=== PATIENT | female | born 1935 | race Caucasian/White ===

== ENCOUNTER 2019-08-07 02:04 | Inpatient (IN) | payer MEDICARE, SELFPAY | END 2019-08-08 16:00 | disposition home or self-care (01) | DRG 389 | LOC: MEDSURG 08-08 09:28 | PROVIDERS: Admitting Provider Internal Medicine; Emergency Provider Emergency Medicine; PCP Nurse Practitioner; Referring Provider Internal Medicine; Visit Provider Internal Medicine | DX: K56.609 Unspecified intestinal obstruction, unspecified as to partial versus complete obstruction (principal); N39.0 Urinary tract infection, site not specified; I10 Essential (primary) hypertension; E11.9 Type 2 diabetes mellitus without complications; Z79.82 Long term (current) use of aspirin; Z79.84 Long term (current) use of oral hypoglycemic drugs; Z86.73 Personal history of transient ischemic attack (TIA), and cerebral infarction without residual deficits; Z87.891 Personal history of nicotine dependence ==

== ENCOUNTER 2020-05-31 13:24 | Outpatient (CLI) | payer MEDICARE, SELFPAY ==
--- NOTE | 2020-05-31 13:34 | XR_ITS ---
NOTE: Report was unsigned for reason: Order was edited. Original Signature date and time was: 05/31/20 @ 1418 WS: [id number] AP pelvis, AP and frog-leg views both hips, 05/31/2020 Clinical Data: LOW BACK PAIN FALL Comparison: None. Findings: The SI joints are normal. The pubic symphysis shows small erosions and calcifications from an old injury. No pelvic fractures are seen. No hip fractures are seen. There are linear calcifications extending inferiorly from the inferior ischiopubic rami bilaterally which appear to be calcifications within muscles, possibly from old injuries. The right hip shows degenerative change with narrowing and possible calcifications in the synovium lateral to the right femoral head. The left hip also shows narrowing with possible synovial calcifications lateral to the left femoral head [facility] XR/XR hip BI 2V wo/w pel [id number] Impression: 1. Negative for pelvic or hip fractures. 2. Degenerative change of both hips. 3. Calcifications within thigh muscles probably from old injuries bilaterally.
--- NOTE | 2020-05-31 13:34 | XR_ITS ---
WS: [id number] Lumbar spine, 3 views, 05/31/2020 Clinical Data: LOW BACK PAIN FALL Comparison: CT abdomen and pelvis, 08/07/2019 Findings: There is a compression fracture of the L5 vertebral body with loss of 25% of the anterior and central vertebral body height. There is an anterior subluxation of L4 on L5 of 0.74 cm. All the lumbar verte bral bodies show osteoporosis and moderate osteoarthritic spurring. The disc heights are normal. The transverse processes and SI joints are normal. There is calcification in the wall of the abdomina l aorta but no aneurysm is seen. There are clips in the right upper quadrant from a cholecystectomy. XR/XR lumbar spine 2-3V* [id number] Impression: 1. Compression fracture of the anterior and central portion of the L5 vertebral body of approximately 25-50%. 2. Anterolisthesis of L4 and L5 of 0.74 cm. 3. Osteoporosis and osteoarthritis involving all the lumbar vertebral bodies.
== END 2020-05-31 13:25 | disposition home or self-care (01) ==
LOC: RADWPI 13:31
PROVIDERS: Family Provider Nurse Practitioner Family; PCP Nurse Practitioner Family; Visit Provider Nurse Practitioner Family
DX: Z91.81 History of falling (principal); M54.5 Low back pain; S32.050A Wedge compression fracture of fifth lumbar vertebra, initial encounter for closed fracture; M81.0 Age-related osteoporosis without current pathological fracture; X58.XXXA Exposure to other specified factors, initial encounter
CPT/HCPCS: 72100; 73521; 73523

== ENCOUNTER 2020-07-08 17:46 | Inpatient (IN) | payer MEDICARE, SELFPAY ==
[2020-07-08 17:47] VITALS: BP 166/91; PULSE 65; RESP 17; TEMP 36.7; O2SAT 95; BMI 25.4
--- NOTE | 2020-07-08 17:50 | XRR_ITS ---
PROCEDURE INFORMATION: Exam: XR Chest, 1 View Exam date and time: 07/08/2020 5:52 PM Age: 84 years old Clinical indication: Chest pain; Radiating; Additional info: Chest pain radiates up neck TECHNIQUE: Imaging protocol: XR of the chest Views: 1 view. COMPARISON: CR Chest 1 [place] [id number] 08/07/2019 8:41 AM FINDINGS: Lungs: There is bilateral interstitial fibrosis predominantly in the right upper lobe. This has not changed. No new pulmonary infiltrates are seen. Pleural space: Unremarkable. No pleural effusion. No pneumothorax. Heart/Mediastinum: The heart is normal for the AP projection. The aorta is tortuous and calcified. Bones/joints: Unremarkable. XR/XR chest 1V portable [id number] IMPRESSION: 1. Stable interstitial pulmonary fibrosis. 2. No acute abnormalities are seen in the chest.
--- NOTE | 2020-07-08 17:50 | ECG_ITS ---
[facility] Test Date: 2020-07-08 Pat Name: Kenia Camacho Department: Room: Gender: Female Community Mental Health Worker: : 1935 Requested By: Sunni Baker Order Number: [id number] Tali MD: Kyara Garcia M.D. Measurements Intervals [place] Rate: 59 P: 35 IN: 136 QRS: -44 QRSD: 121 T: -20 QT: 453 QTc: 451 Interpretive Statements SINUS BRADYCARDIA WITH FREQUENT VENTRICULAR PREMATURE COMPLEXES LEFT AXIS DEVIATION [QRS AXIS < -30] RIGHT BUNDLE BRANCH BLOCK [120+ ms QRS DURATION, UPRIGHT V1, 40+ ms S IN I/aVL/V4/V5/V6] MODERATE T-WAVE ABNORMALITY, CONSIDER LATERAL ISCHEMIA [-0.1+ mV T WAVE IN I/aVL/V5/V6] No previous ECG available for comparison Electronically Signed On 07-09-2020 22:17:19 ASSISTANT PROFESSOR OF ANTHROPOLOGY by Kyara Garcia M.D. [email or web address]/[id number] f
[2020-07-08 18:17] LABS: Basophils % 0.3 %; Eosinophils # 0.3 10^3/uL (0.0-0.8); Eosinophils % 2.6 %; Hematocrit 37.4 % (37.0-47.0); Hemoglobin 11.8 g/dL (11.5-15.3); Lymphocytes # 4.1 10^3/uL (0.8-4.8); Lymphocytes % 33.9 %; Mean Corpuscular HGB Conc 31.6 g/dL (30.0-36.0); Mean Corpuscular Hemoglobin 29.5 pg (28.0-34.0); Mean Corpuscular Volume 93.5 fL (81-99); Mean Platelet Volume 11.3 fL (7.4-10.4); Monocytes # 0.9 10^3/uL (0.2-0.9); Monocytes % 7.6 %; Neutrophils # 6.66 10^3/uL (1.8-7.7); Neutrophils % 55.4 %; Nucleated Red Blood Cells % 0 %; Platelet Count 346 10^3/cmm (130-400); Red Cell Distribution Width 15.3 % (12.1-15.1); White Blood Count 12.1 10^3/uL (4.0-10.0)
[2020-07-08 18:25] LABS: INR 0.88 (0.8-1.2)
[2020-07-08 18:35] LABS: Troponin(5th) Baseline 9 ng/L (0-10)
[2020-07-08 18:43] LABS: Alanine Aminotransferase 10 U/L (0-33); Albumin Level 4.5 g/dL (3.5-5.2); Alkaline Phosphatase 130 IU/L (35-105); Anion Gap 15.6 (5-19); Aspartate Amino Transferase 14 U/L (0-32); Blood Urea Nitrogen 20 mg/dL (8-23); Calcium 9.9 mg/dL (8.5-10.5); Carbon Dioxide 28 mmol/L (22-29); Chloride 98 mmol/L (98-107); Creatinine Clr Calc Pharmacy 37.3798; Globulin 2.8 g/dL (1.3-4.6); Glucose 134 mg/dL (65-115); Lipase 34 U/L (13-60); NT Pro B Type Natriuretic Pept 1840 pg/mL (0-450); Osmolality Calculated 291 mOsm/kg (285-295); Potassium 3.6 mmol/L (3.5-5.1); Sodium 138 mmol/L (136-145); Total Bilirubin 0.3 mg/dL (0.15-1.2); Total Protein 7.3 g/dL (6.6-8.7)
--- NOTE | 2020-07-08 18:44 | W.ED.CHESTPA ---
HPI - Chest Pain General: Chief Complaint: Chest Pain Stated Complaint: CHEST PAIN, NAUSEA Time Seen by Provider: 07/08/20 17:50 History of Present Illness: HPI narrative: This patient is an 84-year-old female who comes in today with chest pain. She said it started about 330 this afternoon while she was sitting and reading. She describes it as a tightness that got continually worse. She has never had anything like this before. She thinks she might of had a stress test years ago but does not recall the reason that she had it. She is never had any other cardiac issues or testing. She does have a history of hypertension and diabetes. She has reflux and takes something for that but said this totally felt different. She was brought in by ambulance and was given 2 nitroglycerin tablets which improved her pain from a 9 to a 4. She also had Nitropaste placed. She denies any recent illness, fever, cough. No vomiting or diarrhea. She has had nausea since this pain started. MD complaint: chest pain and chest heaviness Pertinent past history: other (Hypertension, diabetes) Onset (ago): hour(s) (2) Timing of current episode: constant Prior episodes: No Onset: during rest Pain location: substernal Pain radiation: neck Severity: severe Quality: tightness, aching and heaviness Relieving factors: nitroglycerin Exacerbating factors: nothing Associated symptoms: Reports dyspnea and nausea; Deny fever(s) Treatment prior to arrival: aspirin and nitroglycerin Review of Systems General: Reports: 10 or more systems reviewed and unremarkable except in HPI and below Const: Denies: fever(s), chills, fatigue or malaise Eyes: Denies: change in vision ENMT: Denies: odynophagia Card: Reports: chest pain; Denies: swelling of feet/ankles Resp: Reports: dyspnea GI: Reports: nausea : Denies: flank pain or difficulty voiding Musc: Denies: neck pain or back pain Skin/Breast: Denies: rash Neuro: Denies: headache(s), numbness in extremities or weakness in extremities Anant/Lymph: Denies: easy bruising or easy bleeding PFS ED PFSH: Medical History History of small bowel obstruction Social History Smoking and tobacco status: former smoker Quit status (tobacco): has quit using tobacco Year quit tobacco: 1984 Second hand smoke exposure: No Alcohol intake: never Adopted: No Caregiver/support person: Yes Lives independently: Yes Household members: spouse and family Housing: House Marital status: Marital status details: month Highest education level completed: High School Graduate service: No Current occupational status: retired Pets and animals: No History of recent travel: No Leisure activites: music and games Sexually active: No Current gender identity: Female Karley/Mormon: Zoroastrian Special karley needs: No Agree to transfusion: No Financial difficulty paying for basics: Decline to Answer Physical Exam Const: COMMON NORMALS: no acute distress, patient oriented x3, no limitations and alert GENERAL APPEARANCE: cooperative and comfortable HENMT: HEAD & SCALP: normal to inspection FACE & SINUS: normal facial exam Eye: GENERAL EYE: appearance normal, both eyes and all related structures Neck/C-Spine: COMMON NORMALS: supple, no meningeal signs and no JVD Chest: COMMONS NORMALS: normal inspection of the chest Resp: COMMON NORMALS: normal respiratory effort, No use of accessory muscles and clear to auscultation bilaterally AUSCULTATION: clear to auscultation bilaterally Cardio: COMMON NORMALS: no JVD, regular rate, regular rhythm and No murmurs present (Cardio) RATE: regular rate RHYTHM: regular rhythm GI: COMMON NORMALS: Normal to inspection, nondistended, normoactive bowel sounds present, Soft to palpation and non-tender INSPECTION: Yes normal to inspection AUSCULTATION: Yes normoactive bowel sounds PALPATION: Yes Soft to palpation Back/Pelvis: COMMON NORMALS: thoracic and lumbar spine normal to inspection Extremity: COMMON NORMALS: normal to inspection Neuro: COMMON NORMALS: patient oriented x3, moves all extremities, no focal motor deficits and no sensory deficits noted SENSORIUM/ORIENTATION: Yes alert MENINGEAL SIGNS: Yes no meningeal signs Psych: COMMON NORMALS: mental status grossly normal, cooperative and normal affect Skin: COMMON NORMALS: no rashes or lesions noted and turgor normal GENERAL SKIN EXAM: no rashes or lesions noted and turgor normal Course ED course: Patient continued to have some mild chest discomfort while in the ED. Morphine helped with that. Her initial troponin was 9 but her second had a positive delta of 63. Her EKG remained abnormal but her second had less depression in the precordial leads. She was given Lovenox and will be admitted to the hospitalist service for further evaluation of her and STEMI.. I was not able to find a prior EKG for comparison. Vital Signs: Vital signs: Vital Signs Temperature 98.0 F 07/08/20 17:47 Pulse Rate 66 07/08/20 22:22 Respiratory Rate 16 07/08/20 22:22 Blood Pressure 122/69 07/08/20 22:22 Pulse Oximetry 93 07/08/20 22:22 MDM - Chest Pain Lab Data: Labs: Lab Results 07/08/20 07/08/20 07/08/20 Range/Units 18:00 18:00 18:00 WBC 12.1 H (4.0-10.0) 10^3/ uL RBC 4.00 L (4.1-5.3) 10^6/u L Hgb 11.8 (11.5-15.3) g/dL Hct 37.4 (37.0-47.0) % MCV 93.5 (81-99) fL MCH 29.5 (28.0-34.0) pg MCHC 31.6 (30.0-36.0) g/dL RDW 15.3 H (12.1-15.1) % Plt Count 346 (130-400) 10^3/c mm MPV 11.3 H (7.4-10.4) fL Neut % (Auto) 55.4 % Lymph % (Auto) 33.9 % [place] % (Auto) 7.6 % Eos % (Auto) 2.6 % Baso % (Auto) 0.3 % Neut # (Auto) 6.66 (1.8-7.7) 10^3/u L Lymph # (Auto) 4.1 (0.8-4.8) 10^3/u L [place] # (Auto) 0.9 (0.2-0.9) 10^3/u L Eos # (Auto) 0.3 (0.0-0.8) 10^3/u L Baso # (Auto) 0.0 (0.0-0.1) 10^3/u L Nucleated RBC % (a uto) 0 % Nucleated RBCs # 0.0 /100WBC PT 12.20 (12.1-14.9) SECO NDS INR 0.88 (0.8-1.2) Sodium 138 (136-145) mmol/L Potassium 3.6 (3.5-5.1) mmol/L Chloride 98 (98-107) mmol/L Carbon Dioxide 28 (22-29) mmol/L Anion Gap 15.6 (5-19) BUN 20 (8-23) mg/dL Creatinine 0.9 (0.5-0.9) mg/dL GFR Calculation Not Reportable Glucose 134 H (65-115) mg/dL Calculated Osmolal ity 291 (285-295) mOsm/k g Calcium 9.9 (8.5-10.5) mg/dL Total Bilirubin 0.3 (0.15-1.2) mg/dL AST 14 (0-32) U/L ALT 10 (0-33) U/L Alkaline Phosphata se 130 H (35-105) IU/L Troponin T Baselin e (0-10) ng/L Troponin T 120 Min [place] (0-10) ng/L Delta Troponin T (0-10) ABS# NT-Pro-B Natriuret Pep 1840 H (0-450) pg/mL Total Protein 7.3 (6.6-8.7) g/dL Albumin 4.5 (3.5-5.2) g/dL Globulin 2.8 (1.3-4.6) g/dL Lipase 34 (13-60) U/L 07/08/20 07/08/20 Range/Units 18:00 19:35 WBC (4.0-10.0) 10^3/ uL RBC (4.1-5.3) 10^6/u L Hgb (11.5-15.3) g/dL Hct (37.0-47.0) % MCV (81-99) fL MCH (28.0-34.0) pg MCHC (30.0-36.0) g/dL RDW (12.1-15.1) % Plt Count (130-400) 10^3/c mm MPV (7.4-10.4) fL Neut % (Auto) % Lymph % (Auto) % [place] % (Auto) % Eos % (Auto) % Baso % (Auto) % Neut # (Auto) (1.8-7.7) 10^3/u L Lymph # (Auto) (0.8-4.8) 10^3/u L [place] # (Auto) (0.2-0.9) 10^3/u L Eos # (Auto) (0.0-0.8) 10^3/u L Baso # (Auto) (0.0-0.1) 10^3/u L Nucleated RBC % (a uto) % Nucleated RBCs # /100WBC PT (12.1-14.9) SECO NDS INR (0.8-1.2) Sodium (136-145) mmol/L Potassium (3.5-5.1) mmol/L Chloride (98-107) mmol/L Carbon Dioxide (22-29) mmol/L Anion Gap (5-19) BUN (8-23) mg/dL Creatinine (0.5-0.9) mg/dL GFR Calculation Glucose (65-115) mg/dL Calculated Osmolal ity (285-295) mOsm/k g Calcium (8.5-10.5) mg/dL Total Bilirubin (0.15-1.2) mg/dL AST (0-32) U/L ALT (0-33) U/L Alkaline Phosphata se (35-105) IU/L Troponin T Baselin e 9 (0-10) ng/L Troponin T 120 Min [place] 74.30 H (0-10) ng/L Delta Troponin T 65.30 H* (0-10) ABS# NT-Pro-B Natriuret Pep (0-450) pg/mL Total Protein (6.6-8.7) g/dL Albumin (3.5-5.2) g/dL Globulin (1.3-4.6) g/dL Lipase (13-60) U/L Discharge Plan Discharge Patient Disposition: Admitted As Inpatient Admit Provider: Cameron Barrientos Coding Level of Care Code 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
[2020-07-08 19:14] VITALS: RESP 18; O2SAT 97
[2020-07-08] MEDS: morphine 4 mg/mL SDV 1 mL IVP (19:14)
[2020-07-08 19:49] VITALS: BP 160/83; PULSE 74; RESP 15; O2SAT 95
[2020-07-08] MEDS: enoxaparin 80 mg/0.8 mL Syringe 60 MG SUBCUT (21:27)
--- NOTE | 2020-07-08 21:40 | PC.NURSE ---
pt report called to Brionna MAR in SBAR format.
[2020-07-08 22:19] VITALS: BP 155/84; PULSE 70; RESP 16; TEMP 36.3; O2SAT 94
[2020-07-08 22:22] VITALS: BP 122/69; PULSE 66; RESP 16; O2SAT 93
--- NOTE | 2020-07-08 22:41 | P.HP_ITS ---
Providers/Chief Complaint Admitting Physician: Cameron Barrientos MD Primary Care Provider: SOUMYA Elliott Chief Complaint: CHEST PAIN, NAUSEA History of Present Illness Kenia Camacho is a 84 year old female with past medical history of, hypertension, diabetes, gout, GERD. Came in with chief complaint of substernal chest pain started around 3:30 in the afternoon on the day of admission, described the pain as pressure-like, 8 out of 10 in severity, radiating to the left arm, as well as to neck, she has never experienced any chest pain like this before, was accompanied with nausea,diaphoresis, dizziness. She eventually ended up calling EMS, received 2 sublingual nitro, with some relief. On review of system, denies any headache, fever, cough, shortness of breath, vomiting, abdominal pain, constipation, urinary complaints, weakness in any body part, sick contact. Upon arrival in the ER she was worked up for chest pain. EKG:SINUS RHYTHM WITH OCCASIONAL VENTRICULAR PREMATURE COMPLEXES RIGHT BUNDLE BRANCH BLOCK. X-ray chest: No acute infiltrates, no pulmonary congestion. Troponin: Baseline: 9, 2-hour: 74, delta: 65, 6 hours: 293, delta 6-hour: 284 Pro : BNP: 1840 WBC:[id number] ER medications: Aspirin: 325 mg oral x1 dose, Plavix 300 MG oral x1 dose, morphine 4 mg IV x1. Review of Systems Const: Denies: fever(s), chills, body aches or change in appetite Card: Denies: palpitations, edema, swelling of feet/ankles, orthopnea or leg pain with exertion Resp: Denies: productive cough, wheezing or pain on inspiration GI: Denies: abdominal pain, vomiting, diarrhea or constipation : Denies: flank pain Musc: Denies: back pain, extremity pain or extremity swelling Neuro: Denies: headache(s), difficulty walking or confusion Medications/Allergies Home Medications Medication Instructions Recorded Confirmed Last Taken Type aspirin 81 mg tablet,delayed 81 mg PO ONCE 08/17/19 07/08/20 07/06/20 History release cholecalciferol (vitamin D3) 50 50 mcg PO ONCE 08/17/19 07/08/20 07/06/20 History mcg (2,000 unit) capsule cyanocobalamin (vitamin B-12) 5,000 mcg PO DAILY 08/17/19 07/08/2007/06/20 History 5,000 mcg capsule furosemide 20 mg tablet 20 mg PO QAM 08/17/19 07/08/20 07/06/20 History hydrochlorothiazide 25 mg tablet 25 mg PO QAM 08/17/19 07/08/20 07/07/20 History lisinopril 40 mg tablet 40 mg PO ONCE 08/17/19 07/08/20 07/07/20 History metoprolol succinate 50 mg 50 mg PO BID 08/17/19 07/08/20 07/07/20 History tablet,extended release 24 hr alendronate 70 mg PO Q7D 07/08/20 07/08/20 07/03/20 History allopurinol 300 mg PO DAILY 07/08/20 07/08/20 07/07/20 History meloxicam 15 mg PO DAILY 07/08/20 07/08/20 07/07/20 History omeprazole 20 mg PO DAILY 07/08/20 07/08/20 07/07/20 History Allergies Allergy/AdvReac Type Severity Reaction Status Date / Time No Known Allergies Allergy Verified 07/08/20 22:53 PFSH Acute PFSH: Medical History History of small bowel obstruction Social History Smoking and tobacco status: former smoker Quit status (tobacco): has quit using tobacco Year quit tobacco: 1984 Second hand smoke exposure: No Alcohol intake: never Adopted: No Caregiver/support person: Yes Lives independently: Yes Household members: spouse and family Housing: House Marital status: Marital status details: month Highest education level completed: High School Graduate service: No Current occupational status: retired Pets and animals: No History of recent travel: No Leisure activites: music and games Sexually active: No Current gender identity: Female Karley/Latter-Day: Gnosticist Special karley needs: No Agree to transfusion: No Financial difficulty paying for basics: Decline to Answer Vitals/I&O/Wt Last Vital Signs Temp 98.0 F 07/08/20 17:47 Pulse 66 07/08/20 22:22 Resp 16 07/08/20 22:22 BP 122/69 07/08/20 22:22 Pulse Ox 93 07/08/20 22:22 Weight last 48 hrs Weight 58.967 kg Physical Exam Const: COMMON NORMALS: patient oriented x3 HENMT: COMMON NORMALS: normocephalic, atraumatic and hearing grossly normal bilaterally HEAD & SCALP: normocephalic and atraumatic Eye: COMMON NORMALS: no scleral icterus GENERAL EYE: appearance normal, both eyes and all related structures Chest: COMMONS NORMALS: normal inspection of the chest and normal palpation of entire chest wall CHEST: Yes Symmetrical chest wall rise Resp: COMMON NORMALS: normal respiratory effort, No retractions, No use of accessory muscles and clear to auscultation bilaterally EFFORT & INSPECTION: Yes symmetric chest movement AUSCULTATION: clear to auscultation bilaterally Cardio: COMMON NORMALS: regular rate, regular rhythm, S1 normal heart sound present, S2 normal heart sound present, No gallops present (Cardio), No murmurs present (Cardio), No rub (Cardio) and Peripheral pulses 2+ throughout RATE: regular rate RHYTHM: regular rhythm HEART SOUNDS: S1 normal heart sound present and S2 normal heart sound present PERIPHERAL PULSES: Peripheral pulses 2+ throughout GI: COMMON NORMALS: Normal to inspection, nondistended, normoactive bowel sounds present, Soft to palpation, non-tender, No hepatosplenomegaly present and no masses AUSCULTATION: Yes normoactive bowel sounds PALPATION: Yes Soft to palpation and Yes No hepatosplenomegaly present RECTAL EXAM: deferred Extremity: COMMON NORMALS: no clubbing, cyanosis or edema and no pedal edema Neuro: COMMON NORMALS: patient oriented x3 Data : 07/08/20 18:00 07/08/20 18:00 A&P Assessment and plan (1) NSTEMI (non-ST elevated myocardial infarction): Continue aspirin 81 mg orally Plavix 75 mg oral daily Atorvastatin 80 mg oral daily Metoprolol tartrate 25 mg every 12H Hold lisinopril for now anticipating for cath Hold hydrochlorothiazide for now IMDUR 30 mg oral daily 2D echo N.p.o. Cardiology consulted. Dr. Garcia will see the patient in the morning Telemetry TSH Lipid profile HbA1c Urinalysis Status: Acute (2) Hypertension: Currently blood pressure well controlled. Metoprolol tartrate 25 mg every 12H Hold lisinopril for now anticipating for cath Hold hydrochlorothiazide for now IMDUR 30 mg oral daily Status: Acute (3) Diabetes: Low-dose sliding scale insulin Fingerstick glucose N.p.o. for now Status: Acute (4) Gout: Allopurinol 100 mg p.o. daily Status: Acute (5) GERD (gastroesophageal reflux disease): Protonix 40 mg oral daily Status: Acute (6) Leukocytosis: Pro-Taurus a.m. Hold antibiotics for now Urinalysis Monitor CBC Status: Acute Attestations Medical Necessity Statement*: Patient needs to be in hospital for management of NSTEMI. Anticipated length of stay greater than 2 midnight Coding Level of Care Code Acute [employer] Route Aide for [facility] Fwd Diagnoses NSTEMI (non-ST elevated myocardial infarction) I21.4 Hypertension I10 Diabetes E11.9 Gout M10.9 GERD (gastroesophageal reflux disease) K21.9 Leukocytosis D72.829
[2020-07-08 22:55] VITALS: PULSE 73; O2SAT 99
--- NOTE | 2020-07-08 23:07 | PC.NURSE ---
Patient arrived to the floor from the ED after report was received via phone. Patient is alert and oriented and ambulatory. Patient has been oriented to her room and has call light within reach. Patient does not complain of any pain at this time, only slight nausea. Patient states she recovered from COVID at home in May.
[2020-07-08] MEDS: clopidogrel 300 mg Tablet PO (23:34)
[2020-07-08] MEDS: aspirin 81 mg EC Tablet PO (23:34)
[2020-07-08] MEDS: aspirin 325 mg Tablet PO (23:34)
--- NOTE | 2020-07-08 23:50 | ECG_ITS ---
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 Measurements Intervals [place] Rate: 67 P: 54 OR: 171 QRS: -62 QRSD: 137 T: -9 QT: 458 QTc: 484 Interpretive Statements SINUS RHYTHM WITH OCCASIONAL VENTRICULAR PREMATURE COMPLEXES RIGHT BUNDLE BRANCH BLOCK [120+ ms QRS DURATION, UPRIGHT V1, 40+ ms S IN I/aVL/V4/V5/V6] LEFT ANTERIOR FASCICULAR BLOCK [QRS AXIS <= -45, QR IN I, RS IN II] Compared to ECG 07/08/2020 18:00:56 Left anterior fascicular block now present Sinus bradycardia no longer present Left-axis deviation no longer present T-wave abnormality no longer present Possible ischemia no longer present Electronically Signed On 07-09-2020 22:31:58 OIL AND GAS LEASE PUMPER by Kyara Garcia M.D. [id number] stearns
[2020-07-09] VITALS (58 sets, daily range): BP systolic 108–160; BP diastolic 59–84; PULSE 51–82; RESP 12–22; TEMP 36.1–36.8; O2SAT 90–98; BMI 22.8
[2020-07-09 00:25] LABS: Troponin 5 6HR 293.8 ng/L (0-10); Troponin 5 6HR Delta 284.8 ng/L (0-12)
--- NOTE | 2020-07-09 00:38 | PC.NURSE ---
NURSING NOTE: CRITICAL LAB: CRITICAL TROPONIN LEVEL OF 284.[address] URBAN AT THIS TIME. RECEIVED ORDERS FOR GIVE IMDUR 30MG PO X1 TIME NOW. PT DENIES CP. ALL VS AND ASSESSMENTS CHARTED.
[2020-07-09] MEDS: isosorbide mononitrate ER 30 mg Tablet PO ×2 (00:50→08:55)
--- NOTE | 2020-07-09 05:04 | PC.NURSE ---
NURSING NOTE: SHIFT SUMMARY: PT ALERT AND ORIENTED X4, MOVES ALL EXTREMITIES AND FOLLOWS COMMANDS. DENIES PAIN AT THIS TIME. CURRENTLY RESTING WITH EYES CLOSED, RESP EVEN AND NON LABORED. ALL VS AND ASSESSMENTS CHARTED. NO DISTRESS NOTED AT THIS TIME.
[2020-07-09] MEDS: atorvastatin 40 mg Tablet 80 MG PO ×2 (05:51→20:36)
[2020-07-09 06:05] LABS: Basophils % 0.3 %; Eosinophils # 0.3 10^3/uL (0.0-0.8); Eosinophils % 2.7 %; Hematocrit 31.2 % (37.0-47.0); Hemoglobin 9.7 g/dL (11.5-15.3); Lymphocytes # 3.2 10^3/uL (0.8-4.8); Lymphocytes % 31.9 %; Mean Corpuscular HGB Conc 31.1 g/dL (30.0-36.0); Mean Corpuscular Hemoglobin 29.8 pg (28.0-34.0); Mean Platelet Volume 11.2 fL (7.4-10.4); Monocytes # 0.9 10^3/uL (0.2-0.9); Monocytes % 9.3 %; Neutrophils # 5.52 10^3/uL (1.8-7.7); Neutrophils % 55.6 %; Nucleated Red Blood Cells % 0 %; Platelet Count 272 10^3/cmm (130-400); Red Blood Count 3.25 10^6/uL (4.1-5.3); Red Cell Distribution Width 15.3 % (12.1-15.1); White Blood Count 9.9 10^3/uL (4.0-10.0)
[2020-07-09 06:20] LABS: INR 1.01 (0.8-1.2)
[2020-07-09 06:21] LABS: Partial Thromboplastin Time 39.9 SECONDS (23.9-36.7)
[2020-07-09 06:43] LABS: Alanine Aminotransferase 11 U/L (0-33); Albumin Level 3.7 g/dL (3.5-5.2); Alkaline Phosphatase 105 IU/L (35-105); Anion Gap 15.9 (5-19); Aspartate Amino Transferase 42 U/L (0-32); Blood Urea Nitrogen 19 mg/dL (8-23); Calcium 10.1 mg/dL (8.5-10.5); Carbon Dioxide 28 mmol/L (22-29); Chloride 100 mmol/L (98-107); Globulin 2.3 g/dL (1.3-4.6); Glucose 85 mg/dL (65-115); Magnesium 2.1 mg/dL (1.7-2.3); Osmolality Calculated 292 mOsm/kg (285-295); Phosphorus 4.1 mg/dL (2.5-4.5); Potassium 3.9 mmol/L (3.5-5.1); Sodium 140 mmol/L (136-145); Thyroid Stimulating Hormone 1.52 uIU/mL (0.27-4.20); Total Bilirubin 0.3 mg/dL (0.15-1.2)
[2020-07-09 06:44] LABS: NT Pro B Type Natriuretic Pept 3732 pg/mL (0-450)
[2020-07-09 06:53] LABS: Estmated Average Glucose 111; Hemoglobin A1C 5.5 % (4.0-6.0)
[2020-07-09 06:55] LABS: Chol HDL Ratio 6.29 mg/dL (0.0-4.40); Cholesterol 176 mg/dL (0-200); HDL Cholesterol 28 mg/dL (60-100); LDL Cholesterol Calculated 99 mg/dL (50-129); LDL HDL Ratio 3.54 RATIO (0.00-3.22); Triglycerides 246 mg/dL (0-150)
--- NOTE | 2020-07-09 07:00 | USCV_ITS ---
Kenia Camacho Age: 84 Gender: F : 1935 Exam Date: 07/09/2020 09:21 Ordering Phys: Cameron Barrientos MD Technologist: Genaro Reynoso Exam [place] [facility] [place]ication: CHEST PAJN BP: 152 / 137 HR: 70 Rhythm: Sinus Technical Quality: Adequate MEASUREMENTS (Male / Female) Normal Values 2D ECHO LV Diastolic Diameter PLAX 3.6 cm 4.2 - 5.9 / 3.9 - 5.3 cm LV Systolic Diameter PLAX 2.7 cm IVS Diastolic Thickness 1.1 cm 0.6 - 1.0 / 0.6 - 0.9 cm IVS Systolic Thickness 1.3 cm LVPW Diastolic Thickness 1.3 cm 0.6 - 1.0 / 0.6 - 0.9 cm LVPW Systolic Thickness 1.6 cm LVOT Diameter 2.0 cm LV Ejection Fraction 2D Teich 41.0 % LV Ejection Fraction MOD 2C 54.9 % LV Ejection Fraction 2C AL 54.7 % LA Diameter 4.4 cm LA Width 4.2 cm LA Height 6.0 cm RA Width 4.1 cm RA Height 5.0 cm Aorta at Sinotubular Diameter 2.5 cm M-MODE LV Diastolic Diameter MM 4.7 cm 4.2 - 5.9 / 3.9 - 5.3 cm LV Systolic Diameter MM 2.9 cm LV Ejection Fraction MM Teich 69.4 % IVS Diastolic Thickness MM 0.9 cm 0.6 - 1.0 / 0.6 - 0.9 cm IVS Systolic Thickness MM 1.1 cm LVPW Diastolic Thickness MM 0.9 cm 0.6 - 1.0 / 0.6 - 0.9 cm LVPW Systolic Thickness MM 1.4 cm RV Diastolic Diameter MM 1.5 cm Aortic Annulus Diameter 3.4 cm LA Ao Ratio MM 1.3 MV E Point Septal Separation 1.0 cm DOPPLER AV Peak Velocity 147.7 cm/s LVOT Peak Velocity 83.0 cm/s AV Area Cont Eq vti 2.1 cm squared AV Area Cont Eq pk 1.8 cm squared MV Area PHT 5.0 cm squared Mitral E to A Ratio 1.0 MV E' Velocity 66.0 cm/s Mitral E to MV E' Ratio 24.9 Mitral E to LV E' Lateral Ratio 25.9 Mitral E to LV E' Septal Ratio 24.4 TR Peak Velocity 363.0 cm/s TR Peak Gradient 52.7 mmHg TV Peak E Velocity 82.0 cm/s Right Atrial Pressure 3.0 mmHg Pulmonary Artery Systolic Pressu 55.7 mmHg FINDINGS Left Ventricle Normal left ventricular size and systolic function, EF 61 %. No regional wall motion abnormalities. Grade II/IV diastolic dysfunction, moderately elevated filling pressures. Right Ventricle The right ventricle is normal in size and function. Right Atrium The right atrium is normal in size. Left Atrium Mildly increased left atrial size. Mitral Valve Thickened mitral valve. Moderate mitral annular calcification. mild mitral valve regurgitation. Aortic Valve Thickened aortic valve. Trace to mild aortic valve regurgitation. Tricuspid Valve Mild tricuspid valve regurgitation. Moderate pulmonary hypertension with an estimated pulmonary artery peak systolic pressure of 56 mmHg Pulmonic Valve Structurally normal pulmonic valve. Pericardium Normal pericardium without effusion. Aorta Normal ascending aorta dimension. CONCLUSIONS Normal left ventricular size and systolic function, EF 61 %. No regional wall motion abnormalities. Grade II/IV diastolic dysfunction, moderately elevated filling pressures. Mildly increased left atrial size. Thickened mitral valve. Moderate mitral annular calcification. mild mitral valve regurgitation. Thickened aortic valve. Trace to mild aortic valve regurgitation. Mild tricuspid valve regurgitation. Moderate pulmonary hypertension with an estimated pulmonary artery peak systolic pressure of 56 mmHg. There is no pericardial effusion. There are no intracardiac masses. Compared to the study from 01/31/2014, there is development of pulmonary hypertension and worsening of the left ventricular diastolic dysfunction Dr Kyara Garcia MD [facility] (Electronically Signed) Final Date: 09 July 2020 12:44 S
--- NOTE | 2020-07-09 08:09 | PM.CONSULT ---
Providers/Reason For Consult Consulting Physican/Specialty*: DEJA Garcia MD/cardiology Reason for Consult*: Patient with acute coronary syndrome/non-ST elevation myocardial infarction Attending Physician: Edgar Hartmann Primary Care Provider: SOUMYA Elliott History of Present Illness History of Present Illness Kenia Camacho is a 84 year old female, is admitted to the hospital through the emergency room, where she presented with complaints of chest pain, shortness of breath and sweating. She was found to have elevated troponin T. Cardiology consult is requested for further cardiac evaluation recommendations. This patient apparently has been in her baseline state of health up until 3:00 yesterday afternoon when she started having some pressure and discomfort in the mid substernal area. It was mild in intensity to begin with. Gradually the symptoms started getting worse . The intensity of the pain was 9/10. she was short of breath, somewhat nauseous and sweaty. The pain was radiating across the chest and also to the neck area. No other associated symptoms or radiation of pain. She might have waited for an hour or so. Since there was no relief of the symptoms, the ambulance was called in. She was given 2 sublingual nitro in the ambulance. In the emergency room, she still had some discomfort but it was much better. Finally after 3 to 4 hours, the symptoms almost completely gone. Since the hospital admission, she has not had any recurrence of chest pain. She denies any fever, chills or cough. No orthopnea PND. No palpitation, dizziness or syncopal episodes. She has no previous history for coronary artery disease, myocardial infarction or congestive heart failure. She has a history of GERD. She also has been getting chest tightness/shortness of breath off and on for last few years. Usually the symptoms last for 5 to 10 minutes or so and then goes away by itself. The intensity of these episodes were mild. She is known to have high blood pressure. She had diabetes many years ago but lately has not been taking medications. She was told to stop all her medication for the diabetes, few years ago. She also is known to have dyslipidemia. She took Lipitor for a while. Because of the stomach problems, she stopped taking the Lipitor. She has no other significant past medical history. No significant family history. She is and lives with her . Review of Systems Narrative: CONSTITUTIONAL: No fever or chills. EYES: No blurring of vision or other visual disturbances lately. ENT: No hoarseness of voice, auditory disturbances or sore throat. CARDIOVASCULAR: As mentioned above. RESPIRATORY: No significant cough. GASTROINTESTINAL: History of GERD GENITOURINARY: No dysuria or hematuria. INTEGUMENTARY: No skin rashes or history of skin cancer. NEURO: No transient ischemic attacks or amaurosis. PSYCHIATRIC: No history of psychosis or major depression. HEMATOLOGIC: No bleeding disorders or significant anemia. ENDOCRINE: Remote history of diabetes as mentioned above MUSCULOSKELETAL: No recent joint pain or swelling. ALLERGY/IMMUNOLOGY: As mentioned above. Meds/Allergies Home Medications and Allergies Home Medications Medication Instructions Recorded Confirmed Last Taken Type aspirin 81 mg tablet,delayed 81 mg PO ONCE 08/17/19 07/08/20 07/06/20 History release cholecalciferol (vitamin D3) 50 50 mcg PO ONCE 08/17/19 07/08/20 07/06/20 History mcg (2,000 unit) capsule cyanocobalamin (vitamin B-12) 5,000 mcg PO DAILY 08/17/19 07/08/20 07/06/20 History 5,000 mcg capsule furosemide 20 mg tablet 20 mg PO QAM 08/17/19 07/08/20 07/06/20 History hydrochlorothiazide 25 mg tablet 25 mg PO QAM 08/17/19 07/08/20 07/07/20 History lisinopril 40 mg tablet 40 mg PO ONCE 08/17/19 07/08/20 07/07/20 History metoprolol succinate 50 mg 50 mg PO BID 08/17/19 07/08/20 07/07/20 History tablet,extended release 24 hr alendronate 70 mg PO Q7D 07/08/20 07/08/20 07/03/20 History allopurinol 300 mg PO DAILY 07/08/20 07/08/20 07/07/20 History meloxicam 15 mg PO DAILY 07/08/20 07/08/20 07/07/20 History omeprazole 20 mg PO DAILY 07/08/20 07/08/20 07/07/20 History Allergies Allergy/AdvReac Type Severity Reaction Status Date / Time No Known Allergies Allergy Verified 07/08/20 22:53 Current Medications Current Medications Generic Name Dose Route Start Last Admin Trade Name Freq PRN Reason Stop Dose Admin Aspirin 81 mg 07/08/20 22:50 07/08/20 23:34 Aspirin 81 Mg Ec Tablet PO 81 mg ONCE JAMA Administration Atorvastatin Calcium 80 mg 07/09/20 06:00 07/09/20 05:51 Atorvastatin 40 Mg Tablet PO 80 mg BEDTIME JAMA Administration Isosorbide Mononitrate 30 mg 07/09/20 00:45 07/09/20 00:50 Isosorbide Mononitrate Er 30 Mg Tablet PO 30 mg NOW JAMA Administration PFSH Acute PFSH: Medical History (Updated 07/09/20 @ 10:31 by Edgar Hartmann MD) Anemia Benign essential hypertension with target blood pressure below 140/90 Dyslipidemia (high LDL; low HDL) History of small bowel obstruction Social History Smoking and tobacco status: former smoker Quit status (tobacco): has quit using tobacco Year quit tobacco: 1984 Second hand smoke exposure: No Alcohol intake: never Adopted: No Caregiver/support person: Yes Lives independently: Yes Household members: spouse and family Housing: House Marital status: Marital status details: month Highest education level completed: High School Graduate service: No Current occupational status: retired Pets and animals: No History of recent travel: No Leisure activites: music and games Sexually active: No Current gender identity: Female Karley/Faith: Evangelical Special karley needs: No Agree to transfusion: No Financial difficulty paying for basics: Decline to Answer Vitals/I&O/Wt Last Vital Signs Temp 96.9 F L 07/09/20 07:00 Pulse 63 07/09/20 07:00 Resp 12 07/09/20 07:00 BP 152/76 07/09/20 07:00 Pulse Ox 96 07/09/20 07:00 07/08/20 07/09/20 07/09/20 22:59 06:59 14:59 Intake Total 120 / 120 Balance 120 / 120 Weight last 48 hrs Weight 137 lb Weight 137 lb Weight 130 lb Physical Exam Narrative: EXAM NARRATIVE: GENERAL: The patient is alert and oriented times three. Not in any acute distress. HEENT: No significant pallor, icterus or lymphadenopathy. The pupils are symmetrical. Oral cavity: There are no mucous membrane lesions. Funduscopic examination: The fundus is not visualized NECK: Trachea appears to be central. No masses noted. No JVD or thyromegaly appreciated. No carotid bruit. RESPIRATORY: Chest is symmetrical. No intercostals muscle retraction or any accessory muscle activation. There is no chest wall tenderness. Breath sounds are heard bilaterally. No rales or rhonchi heard. No evidence of any consolidation. BREASTS: Deferred. HEART: The PMI is in the 5th left intercostals space just inside the midclavicular line. No palpable precordial events. S1 and S2 are normal. No S3 or S4 heard. No pericardial rub or any click heard. ABDOMEN: No vessel pulsations or distention. No tenderness. No organomegaly appreciated. No abdominal bruit. Bowel sounds are normally heard. : Deferred. RECTAL: Deferred. LYMPHATIC: No lymphadenopathy noted in the neck or groin. EXTREMITIES: No edema or cyanosis. No clubbing. The pulses are symmetrical bilaterally. The radial, femoral, dorsalis pedis and the posterior tibial pulses are palpated and found to be in good volume and amplitude. MUSCULOSKELETAL: No acute joint deformities or swelling. SKIN: There are no significant scars or skin rash noted. NEUROPSYCHIATRIC: The patient is alert and oriented x3. Appears to be in a good mood. The higher functions are grossly within normal limits. No tremors or rigidity noted. Data Labs: Other Labs: Laboratory Last Values WBC 9.9 10^3/uL (4.0- 10.0) 07/09/20 03:40 RBC 3.25 10^6/uL (4.1 -5.3) L 07/09/20 03:40 Hgb 9.7 g/dL (11.5-15 .3) L 07/09/20 03:40 Hct 31.2 % (37.0-47.0 ) L 07/09/20 03:40 MCV 96.0 fL (81-99) 07/09/20 03:40 MCH 29.8 pg (28.0-34. 0) 07/09/20 03:40 MCHC 31.1 g/dL (30.0-3 6.0) 07/09/20 03:40 RDW 15.3 % (12.1-15.1 ) H 07/09/20 03:40 Plt Count 272 10^3/cmm (130 -400) 07/09/20 03:40 MPV 11.2 fL (7.4-10.4 ) H 07/09/20 03:40 Neut % (Auto) 55.6 % 07/09/20 03:40 Lymph % (Auto) 31.9 % 07/09/20 03:40 Cameron % (Auto) 9.3 % 07/09/20 03:40 Eos % (Auto) 2.7 % 07/09/20 03:40 Baso % (Auto) 0.3 % 07/09/20 03:40 Neut # (Auto) 5.52 10^3/uL (1.8 -7.7) 07/09/20 03:40 Lymph # (Auto) 3.2 10^3/uL (0.8- 4.8) 07/09/20 03:40 Cameron # (Auto) 0.9 10^3/uL (0.2- 0.9) 07/09/20 03:40 Eos # (Auto) 0.3 10^3/uL (0.0- 0.8) 07/09/20 03:40 Baso # (Auto) 0.0 10^3/uL (0.0- 0.1) 07/09/20 03:40 Nucleated RBC % (a uto) 0 % 07/09/20 03:40 Nucleated RBCs # 0.0 /100WBC 07/09/20 03:40 PT 13.70 SECONDS (12 .1-14.9) 07/09/20 03:40 INR 1.01 (0.8-1.2) 07/09/20 03:40 APTT 39.9 SECONDS (23. 9-36.7) H 07/09/20 03:40 Sodium 140 mmol/L (136-1 45) 07/09/20 03:40 Potassium 3.9 mmol/L (3.5-5 .1) 07/09/20 03:40 Chloride 100 mmol/L (98-10 7) 07/09/20 03:40 Carbon Dioxide 28 mmol/L (22-29) 07/09/20 03:40 Anion Gap 15.9 (5-19) 07/09/20 03:40 BUN 19 mg/dL (8-23) 07/09/20 03:40 Creatinine 0.9 mg/dL (0.5-0. 9) 07/09/20 03:40 GFR Calculation Not Reportable 07/09/20 03:40 Glucose 85 mg/dL (65-115) 07/09/20 03:40 Estimat Average Gl ucose 111 07/09/20 03:40 Hemoglobin A1c 5.5 % (4.0-6.0) 07/09/20 03:40 Calculated Osmolal ity 292 mOsm/kg (285- 295) 07/09/20 03:40 Calcium 10.1 mg/dL (8.5-1 0.5) 07/09/20 03:40 Phosphorus 4.1 mg/dL (2.5-4. 5) 07/09/20 03:40 Magnesium 2.1 mg/dL (1.7-2. 3) 07/09/20 03:40 Total Bilirubin 0.3 mg/dL (0.15-1 .2) 07/09/20 03:40 AST 42 U/L (0-32) H 07/09/20 03:40 ALT 11 U/L (0-33) 07/09/20 03:40 Alkaline Phosphata se 105 IU/L (35-105) 07/09/20 03:40 Troponin T Baselin e 9 ng/L (0-10) 07/08/20 18:00 Troponin T 120 Min mark 74.30 ng/L (0-10) H 07/08/20 19:35 Delta Troponin T 65.30 ABS# (0-10) H* 07/08/20 19:35 Troponin T Hi Sens 6Hr 293.8 ng/L (0-10) H 07/08/20 23:46 Troponin T Hi Sens 6Hr Delta 284.8 ng/L (0-12) H* 07/08/20 23:46 NT-Pro-B Natriuret Pep 3732 pg/mL (0-450 ) H 07/09/20 03:40 Total Protein 6.0 g/dL (6.6-8.7 ) L 07/09/20 03:40 Albumin 3.7 g/dL (3.5-5.2 ) 07/09/20 03:40 Globulin 2.3 g/dL (1.3-4.6 ) 07/09/20 03:40 Triglycerides 246 mg/dL (0-150) H 07/09/20 03:40 Cholesterol 176 mg/dL (0-200) 07/09/20 03:40 LDL Cholesterol, C alc 99 mg/dL (50-129) 07/09/20 03:40 HDL Cholesterol 28 mg/dL (60-100) L 07/09/20 03:40 LDL/HDL Ratio 3.54 RATIO (0.00- 3.22) H 07/09/20 03:40 Cholesterol/HDL Ra abdi 6.29 mg/dL (0.0-4 .40) H 07/09/20 03:40 Lipase 34 U/L (13-60) 07/08/20 18:00 Procalcitonin 0.10 ng/mL (0-0.5 ) 07/09/20 03:40 TSH 1.52 uIU/mL (0.27 -4.20) 07/09/20 03:40 Imaging^: CXR: My impression: Borderline cardiac silhouette with no acute lung infiltrate. Bilateral interstitial changes may suggest pulmonary fibrosis. EKG^: EKG 1: My Interpretation: The EKG showed a sinus rhythm with right bundle branch block. Left anterior fascicular block. Diffuse nonspecific ST changes. Occasional PVCs. A&P Assessment and plan (1) NSTEMI (non-ST elevated myocardial infarction): The patient's the clinical features are consistent with an acute coronary syndrome/non-ST elevation myocardial infarction. Currently she seems to be stable hemodynamically. She has no chest pain at this point. She may be continued on the Lovenox, aspirin. She also be started on Plavix, beta-patricia and sublingual nitroglycerin on a as needed basis. An echocardiogram would be helpful to evaluate the LV function and rule out any other pathology. After reviewing the echocardiogram, further recommendations will be made. Status: Acute (2) Benign essential hypertension with target blood pressure below 140/90: Patient blood pressure is currently of stage II. We will try to optimize the antihypertensive medications. Status: Acute (3) Dyslipidemia (high LDL; low HDL): Because of patient's history of statin intolerance, I may start her on a low-dose of Crestor namely 10 mg p.o. daily and advised the clinical response. Status: Acute (4) Anemia: Apparently the patient came with a near normal hemoglobin. The significant drop in the hemoglobin, could be related to some technical issues. We may go ahead and do a repeat CBC to reevaluate. Based on the results, further recommendations will be made. Status: Acute Qualifiers: Anemia type: unspecified type Qualified Code(s): D64.9 - Anemia, unspecified Additional A&P Information Patient the patient is a clinical progress on the results of the above, further recommendations will be made. 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
--- NOTE | 2020-07-09 08:48 | PC.NURSE ---
Telephone order from Dr. Allen to hold morning metoprolol due to sinus bradycardia. RBTO.
[2020-07-09] MEDS: clopidogrel 75 mg Tablet PO (08:54)
[2020-07-09] MEDS: pantoprazole DR 40 mg Tablet PO (08:56)
[2020-07-09] MEDS: allopurinol 300 mg Tablet PO (08:56)
[2020-07-09] MEDS: enoxaparin 60 mg/0.6 mL Syringe SUBCUT ×2 (09:00→20:36)
[2020-07-09 09:25] LABS: Hematocrit 33.7 % (37.0-47.0); Hemoglobin 10.5 g/dL (11.5-15.3)
--- NOTE | 2020-07-09 09:39 | PC.CHAP ---
Pastoral Care Encounter/Spiritual Assessment Type of Contact [] Declined jersey knitter visit [] Patient/Family/Request visit [] Outpatient visit [] Follow-up visit [] Physician referral [] Code/Alert [x] Routine visit [] Staff referral [] Actively dying [] Patient sleeping [] Family support [] [] Out of room [] Palliative care [] [] Receiving care in room [] Pre-surgical visit [] Trauma [] Long length of stay [] ICU visit [] Other: Relational/Emotional Strength [] Patient feels connected with others/family/visitors/staff [] Distress [] Loneliness/isolation [] Abandonment Spirituality of Patient [x] Person of Karley [x] Attends Yazidism of their Karley [x] Believes in Prayer [] Reads Bible or Sikhism materials [] There are Spiritual issues to be addressed Manager Medical Device Interventions [x] Prayer [x] Active listening [x] Non-anxious presence [x] Spiritual/emotional support [] Crisis/trauma care [] Spiritual counseling [] Bereavement support [] Provided bereavement packet [] Provided Bible/devotional materials [] Provided toy/stuffed animal, coloring book to patient or family member [] Provided Communion [] Anointing/[place] [] Salvation [x] Completed spiritual assessment [] Other: Impact on Illness or Injury [] Angry [] Fearful [] Anxious [] Often cries [] Exhaustion [] Unable to work [] Unable to attend temple [] Unable to walk/stand [] Unable to read [] Unable to drive [] Unable to eat/drink [] Unable to sleep [] Unable to be with family [] Patient intubated [] Other: Summary patient resting well ready to begin tests Time spent with patient 25 min
--- NOTE | 2020-07-09 10:19 | PM.PN ---
Subjective Subjective: Interval history: Feeling well. No CP currently. No shortness of breath. Spoke with cardiology. Vitals/I&O/Wt Last Vital Signs Temp 96.9 F L 07/09/20 07:00 Pulse 63 07/09/20 07:00 Resp 12 07/09/20 07:00 BP 152/76 07/09/20 07:00 Pulse Ox 96 07/09/20 07:00 07/08/20 07/09/20 07/09/20 22:59 06:59 14:59 Intake Total 120 / 120 Balance 120 / 120 Weight last 48 hrs Weight 62.142 kg Weight 62.142 kg Weight 58.967 kg Physical Exam Const: COMMON NORMALS: no acute distress, patient oriented x3 and alert GENERAL APPEARANCE: cooperative ORIENTATION/CONSCIOUSNESS: Yes awake OTHER: Pleasant, conversant. HENMT: COMMON NORMALS: oropharynx normal Neck/C-Spine: COMMON NORMALS: no JVD Resp: COMMON NORMALS: normal respiratory effort AUSCULTATION: rales (scattered coarse crackles) Cardio: COMMON NORMALS: no JVD, regular rhythm, S1 normal heart sound present, S2 normal heart sound present and No murmurs present (Cardio) RHYTHM: regular rhythm HEART SOUNDS: S1 normal heart sound present and S2 normal heart sound present GI: COMMON NORMALS: Normal to inspection, nondistended, normoactive bowel sounds present, Soft to palpation and non-tender PALPATION: Yes Soft to palpation Extremity: COMMON NORMALS: no joint enlargement and no pedal edema Neuro: COMMON NORMALS: patient oriented x3 and moves all extremities SENSORIUM/ORIENTATION: Yes alert Skin: COMMON NORMALS: no rashes or lesions noted GENERAL SKIN EXAM: no rashes or lesions noted Data : 07/09/20 09:10 07/09/20 03:40 A&P Assessment and plan (1) NSTEMI (non-ST elevated myocardial infarction): She has been seen by cardiology. Additional recommendations pending assessment by TTE. Continue aspirin, Plavix, Atorvastatin, Metoprolol held due to bradycardia in 50s IMDUR Telemetry TSH normal Lipid profile done HbA1c 5.5 Status: Acute (2) Hypertension: Currently blood could be better controlled. Metoprolol held Lisinopril on hold for now anticipating for cath Hold hydrochlorothiazide for now IMDUR 30 mg oral daily Cardiac diet Status: Acute (3) Diabetes: Low-dose sliding scale insulin Fingerstick glucose N.p.o. after midnight Status: Acute (4) Gout: Allopurinol 100 mg p.o. daily Status: Acute (5) GERD (gastroesophageal reflux disease): Protonix 40 mg oral daily Status: Acute (6) Leukocytosis: Pro-Taurus normal Treat UTI Status: Acute (7) UTI (urinary tract infection): Rocephin. Follow culture. Status: Acute (8) Pulmonary fibrosis: Noted on chest x-ray. Not sure whether this is a known problem. Coarse crackles scattered on exam. She is doing well on room air. Status: Acute Attestations Medical Necessity Statement*: Continue admission for assessment and management of NSTEMI. Coding Level of Care Code Acute Form Stripper for [facility] Diagnoses NSTEMI (non-ST elevated myocardial infarction) I21.4 Hypertension I10 Diabetes E11.9 Gout M10.9 GERD (gastroesophageal reflux disease) K21.9 Leukocytosis D72.829 UTI (urinary tract infection) N39.0 Pulmonary fibrosis J84.10
[2020-07-09] MEDS: cefTRIAXone 1,000 MG in sodium chloride 0.9% (plus) 50 ML 100 MG IV ×2 (10:36→20:37)
[2020-07-09] MEDS: metoprolol tartrate 25 mg Tablet PO (17:25)
--- NOTE | 2020-07-09 23:01 | NUR.SHIFT ---
NURSING NOTE: PRE PROCEDURE TASKS; PT ALERT AND ORIENTED X4. MOVES ALL EXTREMITIES AND FOLLOWS ALL COMMANDS. CONSENT FOR CARDIAC CATH COMPLETED AND ON CHART. SITE PREP/SHAVE AND CLEANSE TO GROIN SITE, COMPLETED. PEDAL PULSES DOPPLERED, PALPATED, AND MARKED. ALL VS AND ASSESSMENTS CHARTED. PT DENIES PAIN. NO DISTRESS NOTED AT THIS TIME.
[2020-07-10] VITALS (53 sets, daily range): BP systolic 103–189; BP diastolic 48–102; PULSE 61–111; RESP 12–26; TEMP 36.4–36.8; O2SAT 91–99
--- NOTE | 2020-07-10 04:30 | PC.NURSE ---
NURSING NOTE: SHIFT SUMMARY: PT ALERT AND ORIENTED X4, MOVES ALL EXTREMITIES AND FOLLOWS COMMANDS. CONSENT FOR CARDIAC CATH SIGNED AND IN CHART. PT NPO AFTER MIDNIGHT. RESTED IN BED WITH EYES CLOSED MAJORITY OF SHIFT. ALL VS AND ASSESSMENTS CHARTED. NO DISTRESS NOTED.
[2020-07-10 04:33] LABS: Basophils % 0.4 %; Eosinophils # 0.2 10^3/uL (0.0-0.8); Eosinophils % 2.1 %; Hematocrit 31.8 % (37.0-47.0); Hemoglobin 10.1 g/dL (11.5-15.3); Lymphocytes # 2.9 10^3/uL (0.8-4.8); Lymphocytes % 26.7 %; Mean Corpuscular HGB Conc 31.8 g/dL (30.0-36.0); Mean Corpuscular Volume 94.4 fL (81-99); Mean Platelet Volume 11.1 fL (7.4-10.4); Monocytes # 1.1 10^3/uL (0.2-0.9); Monocytes % 9.9 %; Neutrophils # 6.53 10^3/uL (1.8-7.7); Neutrophils % 60.6 %; Nucleated Red Blood Cells % 0 %; Platelet Count 295 10^3/cmm (130-400); Red Blood Count 3.37 10^6/uL (4.1-5.3); Red Cell Distribution Width 15.1 % (12.1-15.1); White Blood Count 10.8 10^3/uL (4.0-10.0)
[2020-07-10 04:55] LABS: Alanine Aminotransferase 12 U/L (0-33); Albumin Level 3.6 g/dL (3.5-5.2); Alkaline Phosphatase 100 IU/L (35-105); Anion Gap 12.9 (5-19); Aspartate Amino Transferase 30 U/L (0-32); Blood Urea Nitrogen 19 mg/dL (8-23); Calcium 9.5 mg/dL (8.5-10.5); Carbon Dioxide 29 mmol/L (22-29); Chloride 99 mmol/L (98-107); Globulin 2.6 g/dL (1.3-4.6); Glucose 109 mg/dL (65-115); Osmolality Calculated 287 mOsm/kg (285-295); Potassium 3.9 mmol/L (3.5-5.1); Sodium 137 mmol/L (136-145); Total Bilirubin 0.3 mg/dL (0.15-1.2); Total Protein 6.2 g/dL (6.6-8.7)
[2020-07-10] MEDS: sodium chloride 0.9% 1,000 ML 50 ML IV (07:32)
[2020-07-10] MEDS: diphenhydrAMINE 50 mg Capsule PO (07:32)
--- NOTE | 2020-07-10 08:30 | PM.PN ---
Subjective Subjective: Interval history: Patient had denies any chest pain. She has some amount of shortness of breath with activities. The blood pressure seems to be elevated. No new symptoms. No fever or chills. No cough. Medications: Reviewed: Yes Medication Review Details: Current Medications Acetaminophen (Acetaminophen 325 Mg Tablet) 650 mg PO Q6H PRN PRN Reason: Mild/Mod Pain Or Temp >/= 101 Hydrocodone Bitart/Acetaminophen (Hydrocodone-Acetaminophen 5-325 Mg Tablet) 1 tab PO Q4H PRN PRN Reason: MODERATE TO SEVERE PAIN Allopurinol (Allopurinol 300 Mg Tablet) 300 mg PO DAILY [facility] Last Admin: 07/09/20 08:56 Dose: 300 mg Documented by: Aspirin (Aspirin 81 Mg Ec Tablet) 81 mg PO ONCE [facility] Last Admin: 07/08/20 23:34 Dose: 81 mg Documented by: Atorvastatin Calcium (Atorvastatin 40 Mg Tablet) 80 mg PO BEDTIME [facility] Last Admin: 07/09/20 20:36 Dose: 80 mg Documented by: Bisacodyl (Bisacodyl 5 Mg Tablet) 10 mg PO DAILY PRN PRN Reason: CONSTIPATION Clopidogrel Bisulfate (Clopidogrel 75 Mg Tablet) 75 mg PO DAILY [facility] Last Admin: 07/09/20 08:54 Dose: 75 mg Documented by: Enoxaparin Sodium (Enoxaparin 60 Mg/0.6 Ml Syringe) 60 mg SUBCUT Q12H [facility] Last Admin: 07/09/20 20:36 Dose: 60 mg Documented by: Ceftriaxone Sodium 1,000 mg/ (Sodium Chloride) 50 mls @ 100 mls/hr IV Q12H [facility]; Protocol Last Infusion: 07/09/20 21:10 Dose: Infused Documented by: Sodium Chloride (Sodium Chloride 0.9%) 1,000 mls @ 50 mls/hr IV .Q20H ONE Stop: 07/11/20 02:59 Last Admin: 07/10/20 07:32 Dose: 50 mls/hr Documented by: Isosorbide Mononitrate (Isosorbide Mononitrate Er 30 Mg Tablet) 30 mg PO DAILY [facility] Last Admin: 07/09/20 08:55 Dose: 30 mg Documented by: Isosorbide Mononitrate (Isosorbide Mononitrate Er 30 Mg Tablet) 30 mg PO NOW [facility] Last Admin: 07/09/20 00:50 Dose: 30 mg Documented by: Metoprolol Tartrate (Metoprolol Tartrate 25 Mg Tablet) 25 mg PO BID [facility] Last Admin: 07/09/20 17:25 Dose: 25 mg Documented by: Morphine Sulfate (Morphine 4 Mg/Ml Sdv 1 Ml) 2 mg IVP Q4H PRN PRN Reason: SEVERE PAIN Naloxone HCl (Naloxone 0.4 Mg/Ml Sdv) 0.1 mg IVP Q2M PRN PRN Reason: OPIATERV Nitroglycerin (Nitroglycerin 0.4 Mg Sublingual Tablet) 0.4 mg SUBLINGUAL Q5M PRN PRN Reason: CHEST PAIN Non-Formulary Medication (Cholecalciferol (Vitamin D3)) 50 mcg PO ONCE [facility] Non-Formulary Medication (Cyanocobalamin (Vitamin B-12)) 5,000 mcg PO DAILY [facility] Ondansetron HCl (Ondansetron 2 Mg/Ml Sdv 2 Ml) 4 mg IVP Q8H PRN PRN Reason: vomiting, or N/V if npo Pantoprazole Sodium (Pantoprazole Dr 40 Mg Tablet) 40 mg PO DAILY [facility] Last Admin: 07/09/20 08:56 Dose: 40 mg Documented by: Vitals/I&O/Wt Last Vital Signs Temp 97.6 F 07/10/20 06:52 Pulse 69 07/10/20 06:52 Resp 19 H 07/10/20 06:52 BP 168/87 07/10/20 06:52 Pulse Ox 95 07/10/20 06:52 07/09/20 07/10/20 07/10/20 22:59 06:59 14:59 Intake Total 170 / 460 Balance 170 / 230 Weight last 48 hrs Weight 138 lb Weight 137 lb Weight 137 lb Weight 130 lb Physical Exam Narrative: EXAM NARRATIVE: GENERAL: The patient is alert and oriented times three. Not in any acute distress. HEENT: No significant pallor, icterus or lymphadenopathy. The pupils are symmetrical. Oral cavity: There are no mucous membrane lesions. Funduscopic examination: The fundus is not visualized NECK: Trachea appears to be central. No masses noted. No JVD or thyromegaly appreciated. No carotid bruit. RESPIRATORY: Chest is symmetrical. No intercostals muscle retraction or any accessory muscle activation. There is no chest wall tenderness. Breath sounds are heard bilaterally. No rales or rhonchi heard. No evidence of any consolidation. BREASTS: Deferred. HEART: The PMI is in the 5th left intercostals space just inside the midclavicular line. No palpable precordial events. S1 and S2 are normal. No S3 or S4 heard. No pericardial rub or any click heard. ABDOMEN: No vessel pulsations or distention. No tenderness. No organomegaly appreciated. No abdominal bruit. Bowel sounds are normally heard. : Deferred. RECTAL: Deferred. LYMPHATIC: No lymphadenopathy noted in the neck or groin. EXTREMITIES: No edema or cyanosis. No clubbing. The pulses are symmetrical bilaterally. The radial, femoral, dorsalis pedis and the posterior tibial pulses are palpated and found to be in good volume and amplitude. MUSCULOSKELETAL: No acute joint deformities or swelling. SKIN: There are no significant scars or skin rash noted. NEUROPSYCHIATRIC: The patient is alert and oriented x3. Appears to be in a good mood. The higher functions are grossly within normal limits. No tremors or rigidity noted. Data : 07/11/20 04:41 07/11/20 04:41 Other Labs: Laboratory Last Values WBC 10.8 10^3/uL (4.0-10.0) H 07/10/20 03:30 RBC 3.37 10^6/uL (4.1-5.3) L 07/10/20 03:30 Hgb 10.1 g/dL (11.5-15.3) L 07/10/20 03:30 Hct 31.8 % (37.0-47.0) L 07/10/20 03:30 MCV 94.4 fL (81-99) 07/10/20 03:30 MCH 30.0 pg (28.0-34.0) 07/10/20 03:30 MCHC 31.8 g/dL (30.0-36.0) 07/10/20 03:30 RDW 15.1 % (12.1-15.1) 07/10/20 03:30 Plt Count 295 10^3/cmm (130-400) 07/10/20 03:30 MPV 11.1 fL (7.4-10.4) H 07/10/20 03:30 Neut % (Auto) 60.6 % 07/10/20 03:30 Lymph % (Auto) 26.7 % 07/10/20 03:30 Wharton % (Auto) 9.9 % 07/10/20 03:30 Eos % (Auto) 2.1 % 07/10/20 03:30 Baso % (Auto) 0.4 % 07/10/20 03:30 Neut # (Auto) 6.53 10^3/uL (1.8-7.7) 07/10/20 03:30 Lymph # (Auto) 2.9 10^3/uL (0.8-4.8) 07/10/20 03:30 Wharton # (Auto) 1.1 10^3/uL (0.2-0.9) H 07/10/20 03:30 Eos # (Auto) 0.2 10^3/uL (0.0-0.8) 07/10/20 03:30 Baso # (Auto) 0.0 10^3/uL (0.0-0.1) 07/10/20 03:30 Nucleated RBC % (auto) 0 % 07/10/20 03:30 Nucleated RBCs # 0.0 /100WBC 07/10/20 03:30 PT 13.70 SECONDS (12.1-14.9) 07/09/20 03:40 INR 1.01 (0.8-1.2) 07/09/20 03:40 APTT 39.9 SECONDS (23.9-36.7) H 07/09/20 03:40 Sodium 137 mmol/L (136-145) 07/10/20 03:30 Potassium 3.9 mmol/L (3.5-5.1) 07/10/20 03:30 Chloride 99 mmol/L (98-107) 07/10/20 03:30 Carbon Dioxide 29 mmol/L (22-29) 07/10/20 03:30 Anion Gap 12.9 (5-19) 07/10/20 03:30 BUN 19 mg/dL (8-23) 07/10/20 03:30 Creatinine 1.1 mg/dL (0.5-0.9) H 07/10/20 03:30 GFR Calculation Not Reportable 07/10/20 03:30 Glucose 109 mg/dL (65-115) 07/10/20 03:30 Estimat Average Glucose 111 07/09/20 03:40 Hemoglobin A1c 5.5 % (4.0-6.0) 07/09/20 03:40 Calculated Osmolality 287 mOsm/kg (285-295) 07/10/20 03:30 Calcium 9.5 mg/dL (8.5-10.5) 07/10/20 03:30 Phosphorus 3.0 mg/dL (2.5-4.5) 07/10/20 03:30 Magnesium 2.0 mg/dL (1.7-2.3) 07/10/20 03:30 Total Bilirubin 0.3 mg/dL (0.15-1.2) 07/10/20 03:30 AST 30 U/L (0-32) 07/10/20 03:30 ALT 12 U/L (0-33) 07/10/20 03:30 Alkaline Phosphatase 100 IU/L (35-105) 07/10/20 03:30 Troponin T Baseline 9 ng/L (0-10) 07/08/20 18:00 Troponin T 120 Minute 74.30 ng/L (0-10) H 07/08/20 19:35 Delta Troponin T 65.30 ABS# (0-10) H* 07/08/20 19:35 Troponin T Hi Sens 6Hr 293.8 ng/L (0-10) H 07/08/20 23:46 Troponin T Hi Sens 6Hr Delta 284.8 ng/L (0-12) H* 07/08/20 23:46 NT-Pro-B Natriuret Pep 3732 pg/mL (0-450) H 07/09/20 03:40 Total Protein 6.2 g/dL (6.6-8.7) L 07/10/20 03:30 Albumin 3.6 g/dL (3.5-5.2) 07/10/20 03:30 Globulin 2.6 g/dL (1.3-4.6) 07/10/20 03:30 Triglycerides 246 mg/dL (0-150) H 07/09/20 03:40 Cholesterol 176 mg/dL (0-200) 07/09/20 03:40 LDL Cholesterol, Calc 99 mg/dL (50-129) 07/09/20 03:40 HDL Cholesterol 28 mg/dL (60-100) L 07/09/20 03:40 LDL/HDL Ratio 3.54 RATIO (0.00-3.22) H 07/09/20 03:40 Cholesterol/HDL Ratio 6.29 mg/dL (0.0-4.40) H 07/09/20 03:40 Lipase 34 U/L (13-60) 07/08/20 18:00 Procalcitonin 0.10 ng/mL (0-0.5) 07/09/20 03:40 TSH 1.52 uIU/mL (0.27-4.20) 07/09/20 03:40 Micro: Microbiology 07/09/20 11:05 Urine Culture - Preliminary Urine,Clean Catch Gram Negative Rods A&P Assessment and plan (1) NSTEMI (non-ST elevated myocardial infarction): Patient is scheduled for the cardiac catheterization today. Based on the angiogram findings, further recommendations will be made. In the meanwhile, she may continue on the current medications. Status: Acute (2) Benign essential hypertension with target blood pressure below 140/90: Patient blood pressure is currently of stage II. We will try to optimize the antihypertensive medications. Status: Acute (3) Dyslipidemia (high LDL; low HDL): Continue on the Crestor. Status: Acute (4) Anemia: The hemoglobin has been fluctuating. Latest hemoglobin is 10.1. She has no obvious bleeding. May continue monitoring the H&H Status: Acute Qualifiers: Anemia type: unspecified type Qualified Code(s): D64.9 - Anemia, unspecified Additional A&P Information Patient the patient is a clinical progress and the cardiac catheterization findings, further recommendations will be made. Attestations Medical Necessity Statement*: Patient requires continued hospital stay for close monitoring and further management Coding Level of Care Code Acute Area Development Consultant for g Fwd History Detailed Exam Detailed Medical Decision Making Moderate Complexity Diagnoses NSTEMI (non-ST elevated myocardial infarction) I21.4 Benign essential hypertension with target blood pressure below 140/90 I10 Dyslipidemia (high LDL; low HDL) E78.5 Anemia D64.9 Anemia type: unspecified type
--- NOTE | 2020-07-10 09:00 | XACV_ITS ---
Exam Room: [facility] Ht: 165 cm Wt: 62 kg BSA: 1.69 m2 Gender: Female : 1935 Any Known Allergies: No known allergies Exam Priority: Routine Procedure(s): Procedure Description: Diagnostic procedure Procedure Description: PCI procedure Procedure Description: Left Heart Catheterization Procedure Description: Drug Eluting Coronary Stent Procedure Description: PTCA Procedure Description: Coronary Angiography Diagnostic Cath Status: Urgent Diagnostic Findings * Coronary angiography shows right dominance. * Left main is a medium caliber vessel with minimal intimal plaques and calcification. No significant stenosis. * The left anterior descending artery is a medium caliber vessel which appears to wrap around the LV apex minimally. The mid and the distal LAD was found to have mild diffuse intimal irregularities with no significant stenotic lesions. * The left circumflex artery is a medium caliber vessel which was found to have a high grade tubular stenosis in the proximal segment. The lesion appears to be around 98%. The first obtuse marginal branch appears to have eccentric lesion of around 60% proximally. The circumflex proper appears to be a slender. * The right coronary artery is a medium caliber dominant vessel which was found to have around 70% stenosis proximally. The mid segment was found to have around 85 to 90% lesion. Distal RCA was found to have minimal plaques with no significant stenosis. PCI Status: Urgent PCI Indication: NSTE - ACS Interventional Findings * IV heparin was administered to maintain an ACT above 250 seconds. * W * e engaged the RCA using a 6 Japanese JR4 guide catheter. 0.014 run-through guidewire was used to cross the proximal and mid RCA stenosis and was placed in distal RCA. We used a 2.5 x 15 mm semicompliant balloon to predilate the proximal and mid RCA stenosis. This was followed by deployment of 3.0 x 30 mm resolute Farheen drug-eluting stent. At this time guidewire was removed and final angiogram was performed that showed excellent stent expansion, ALEXSANDRA-3 flow and no residual stenosis. We then turned our attention to left circumflex stenosis. XB 3.5 guide catheter was used to engage the left main artery. We used a 0.014 run-through guidewire to cross the stenosis and was placed in distal OM vessel. We predilated the stenosis using 2.75 x 15 mm semicompliant balloon. This was followed by placement of 3.0 x 18 mm resolute [place]ward drug-eluting stent. Proximal OM branch was a bit hazy and there was residual stenosis. So we covered that with another 2.75 x 15 mm resolute [place] drug-eluting stent. At this time final angiogram was performed that showed excellent stent expansion, no residual stenosis and ALEXSANDRA-3 flow. Guidewire and guide catheter were removed. Patient left the Student Driving Instructor in stable condition.. * Proximal Circumflex Coronary Artery: 100% stenosis treated with AB TREK 2.75X15 RX BALLOON and MDT R FARHEEN 3.0X18 SORAYA. 0% residual stenosis, ALEXSANDRA: 3 flow. * Mid Circumflex Coronary Artery: 100% stenosis treated with MDT R FARHEEN 2.75X15 SORAYA. 0% residual stenosis, ALEXSANDRA: 3 flow. * Mid Right Coronary Artery: 100% stenosis treated with AB TREK 2.50X15 RX BALLOON and MDT R FARHEEN 3.0X30 SORAYA. 0% residual stenosis, ALEXSANDRA: 3 flow. Decision for PCI with Surgical Consult: No PCI for Multi-vessel Disease: Yes Multi-vessel Procedure Type: Initial PCI Conclusions 1. This is an 84-year-old white female with a history of high blood pressure, diabetes and dyslipidemia, presented with prolonged episode of chest pain. She was found to have elevated troponin T and diffuse nonspecific ST-T changes. She has been complaining of dyspnea on exertion and easy fatigability for a while. In view of her presenting symptoms and the other abnormal objective findings, in order to further evaluate her coronary status, a cardiac catheterization was recommended. Patient underwent left heart catheterization with a left and right coronary angiogram today. 2. The findings are as follows. 3. High-grade lesion of the proximal circumflex artery and moderately severe disease in the proximal segment of the first obtuse marginal branch. High-grade tandem lesions in the right coronary artery. Mild diffuse disease in the other vessels. LVEDP of 12 mmHg. 4. I discussed and reviewed the cardiac colorization data with Dr. Carmona. It was thought to be appropriate to consider PCI of the RCA and the circumflex artery lesions. Dr. Carmona concurred with this plan and took over further management of this patient at this point. 5. Mid Circumflex to proximal OM 1 was treated with Drug Eluting Stent. 6. Proximal Circumflex Coronary Artery was treated with Balloon and Drug Eluting Stent. 7. Mid Right Coronary Artery was treated with Balloon and Drug Eluting Stent. Recommendations * Continue current medical management and risk factor modification. * Continue aspirin and Plavix for at least 1 year. * High intensity statin therapy. * Cardiac rehab. Interventional RX Recommendation: PCI w/o planned CABG Diagnostic RX Recommendation: PCI w/o planned CABG Anticoagulation: Heparin LV EDP: 12 mmHg Left Ventriculography Findings: * LV gram was not performed because of the patient's renal insufficiency. Ejection fraction was normal by echocardiogram. Pressures Phase:Rest AO : 158 / 74 ( 109 ) @ 3:28:00 AM 158 / 77 ( 110 ) @ 3:32:00 AM 181 / 21 ( 85 ) @ 3:34:00 AM 66 / 50 ( 55 ) @ 4:00:00 AM 80 / 38 ( 56 ) @ 4:00:00 AM 144 / 54 ( 88 ) @ 4:04:00 AM 156 / 60 ( 100 ) @ 4:08:00 AM 137 / 61 ( 91 ) @ 4:17:00 AM 140 / 61 ( 94 ) @ 4:18:00 AM 190 / 95 ( 135 ) @ 4:22:00 AM 134 / 64 ( 96 ) @ 4:27:00 AM 144 / 70 ( 102 ) @ 4:29:00 AM 153 / 72 ( 107 ) @ 4:34:00 AM LV : 175 / -7 / @ 3:34:00 AM Clinical Evaluation EBL: 5mL-10mL Procedural Details Procedure Consent Obtained. Pre-Procedure Time Out. Identified patient by full name and date of as verbalized by the patient/guarantor. Does the consent match the physician's order: Yes. Accurate & Complete Informed Consent: Yes. Inpatient/Outpatient History & Physical on Chart: Yes. If H&P is completed, is and addenduem needed: N/A; If yes, is the addendum complete: N/A. Visualize and Verify Site with Patient/Guarantor: N/A. Relevant Radiology Images available: Yes. Pre-op teaching completed and patient verbalized understanding. The risks, benefits, and alternatives of sedation and/or procedure were discussed by physician. The patient agrees to continue. Procedure started. PERRLA. Strong, equal hand lumber straightener bilaterally. Lungs clear x 5 lobes. IV Site on Arrival: 20 gauge in the right forearm. IV Fluids: 0.9% NaCl at KVO. 0 mL infused prior to cytology laboratory manager. Pre Procedural Pulses: bilateral dorsalis pedis was 3+. Pre Procedural Pulses: bilateral posterior tibial was 3+. Pre Procedural Pulses: bilateral radial was 3+. Oxygen started at 2liters/min via nasal canula. right groin was prepped with chloroprep then draped in the usual sterile fashion. Physician notified. Baseline sample Acquired. HR: 71 BPM. Physician arrived. Equipment: 6F - Femoral. Cardiac Cath Pack. ACIST Manifold Kit Model BT 2000. Heparinized Saline (2 units/mL), 1000 mL bag. Kit, Micropuncture. Physician scrubbed in. Immediate Pre-Procedure Time Out. Correct Patient: Yes; Correct Procedure: Yes; Correct Site: Yes; Correct Patient Position: Yes; Correct Supplies: Yes; Dried Flammable Prep: Yes; Blood Products Available: No;. Lidocaine 1% infiltrated to the right groin. Arterial access obtained with micropuncture set. A 5 japanese JL4 catheter in over wire. Multiple views taken of left coronary artery. Catheter out. A 5 japanese JL4 catheter in over wire. Dr. Davey called. Dr. Davey arrived. Multiple views taken of right coronary artery. Catheter out. A 5 japanese JL4 catheter in over wire. EDP Sample taken: LV 175/-8,12; HR: 74 BPM; SpO2: 99%. Pullback taken: LV Off; AO Off; Mean: , Peak to Peak: , SEP: ; HR: 73 BPM; SpO2: 99%. Catheter out. 5FR sheath exchanged for a 6FR sheath. Dr. Davey scrubbed in to perform intervention. Patient's family updated. Inventory is TR 180cm Runthrough NS extra floppy 0.014 wire. 6 japanese JR 4 guide catheter was inserted over the wire. Runthrough guidewire was advanced through the guide catheter to lesion in the mid RCA. Guidewire advanced across lesion. [facility] Clinical Fraility Score: 4: Vulnerable. Student Driving Instructor Indications: ACS > 24 hours. Chest Pain Symptom Assessment: Typical Angina Symptoms. Cardiovascular Instability: No. ACT drawn. Results 386 seconds. Therapeutic limits - pre-heparin administration 90-150 seconds and monitoring heparin during a vascular procedure >250 seconds. Inflation number : 1 A AB TREK 2.50X15 RX BALLOON was prepped and advanced across the Mid RCA , then inflated to 12 CAMPBELL for 0:29 seconds. Inflation number: 2 The AB TREK 2.50X15 RX BALLOON was reinflated across the Mid RCA, to 14 CAMPBELL for 0:25 seconds. Balloon out. Results checked. stent inserted and removed intact. Guide liner inserted. Multiple views taken of right coronary artery. Inflation Number : 3 A MDT R FARHEEN 3.0X30 SORAYA -Lot Number# [id number] exp 03-20-2022 was prepped and advanced across the Mid RCA. The stent was deployed at 12 CAMPBELL for 0:29 seconds. Stent balloon out over wire. Results checked. Multiple views taken of right coronary artery. guide liner removed. Wire out. ACT drawn. Results 261 seconds. Therapeutic limits - pre-heparin administration 90-150 seconds and monitoring heparin during a vascular procedure >250 seconds. 6 japanese XB 3.5 guide catheter was inserted over the wire. Runthrough guidewire was advanced through the guide catheter to lesion in the prox Circ. Multiple views taken of left coronary artery. Inflation number : 1 A AB TREK 2.75X15 RX BALLOON was prepped and advanced across the Prox CX , then inflated to 12 CAMPBELL for 0:09 seconds. Inflation number: 2 The AB TREK 2.75X15 RX BALLOON was reinflated across the Prox CX, to 14 CAMPBELL for 0:23 seconds. Balloon out. Inflation Number : 3 A MDT R FARHEEN 3.0X18 SORAYA -Lot Number# [id number] exp 01-01-2022 was prepped and advanced across the Prox CX. The stent was deployed at 14 CAMPBELL for 0:19 seconds. Stent balloon out over wire. Results checked. Results checked. Multiple views taken of left coronary artery. Inflation Number : 1 A CURTIS Timmons FARHEEN 2.75X15 SORAYA -Lot Number# [id number] exp 01-22-2022_ was prepped and advanced across the Mid CX. The stent was deployed at 14 CAMPBELL for 0:26 seconds. Inflation number: 2 The stent balloon was then re-inflated across the Mid CX to 14 CAMPBELL for 0:10 seconds. Stent balloon out over wire. Wire out. Results checked. Guide catheter out. A Suture was successful obtaining hemostatsis at the Right Femoral artery insertion site. Sheath(s) sutured into position with 2-0 silk and sterile 4x4's and Op-site applied over the site. No oozing or signs and symptoms of hematoma noted. Arterial sheath flushed and connected to tranducer and pressure bag with heparinized saline. Post Procedure: Pulses reassessed and unchanged. PERRLA. Strong, equal hand lumber straightener bilaterally. No VTE prophylaxis required. Medication's Wasted: Other = hydralzine 10 mg. Medication's Wasted: Lidocaine 1% = 6 mL. Medication's Wasted: Nitro = 49.6 mg. Total IV fluids: 125 mL. Fluoro: 23:09. Contrast type used: Omnipaque 300 mgI/mL, 500 mL bottle. [id number]. PCI Indication: NSTE. Post-op diagnosis: severe 2 vessel disease. Complications: none. Estimated blood loss: 5mL-10mL. Procedure completed. Patient transferred by bed to 1st floor. Vital chart was stopped. Access Site Site: Right Femoral artery Sheath Size: 5 Fr Hemostasis Success: Unsuccessful Site: Right Femoral artery Sheath Size: 6 Fr Hemostasis Method: Suture Hemostasis Success: Successful Procedure Medications Start: 9:10 AM Stop: 9:10 AM Medication: Versed Amount: 1 mg Route: I.V. Start: 9:10 AM Stop: 9:10 AM Medication: Fentanyl Amount: 50 mcg Route: I.V. Start: 9:32 AM Stop: 9:32 AM Medication: Heparin Amount: 1500 units Route: I.V. Start: 9:33 AM Stop: 9:33 AM Medication: Lopressor (metoprolol) Amount: 5 mg Route: I.V. Start: 9:41 AM Stop: 9:41 AM Medication: Heparin Amount: 6000 units Route: I.V. Start: 9:56 AM Stop: 9:56 AM Medication: Versed Amount: 1 mg Route: I.V. Start: 10:08 AM Stop: 10:08 AM Medication: Heparin Amount: 2000 units Route: I.V. Start: 10:20 AM Stop: 10:20 AM Medication: Hydralazine Amount: 10 mg Start: 10:20 AM Stop: 10:20 AM Medication: Fentanyl Amount: 50 mcg Route: I.V. Start: 10:26 AM Stop: 10:26 AM Medication: Nitrogylcerin Amount: 200 mcg Route: I.C. Start: 10:35 AM Stop: 10:35 AM Medication: Nitrogylcerin Amount: 200 mcg Route: I.C. I, the attending physician, have reviewed and verified all procedure medications. Yes, all medications given per verbal order History/Risk Factors Hypertension: Yes Dyslipidemia: Yes Renal Disease: No Tobacco Use: Former Report Signatures Interventional Workflow Finalized by Myron Carmona MD on 07/11/2020 12:37 PM Diagnostic Workflow Finalized by Dr Kyara Garcia MD [facility] on 07/10/2020 04:47 PM
--- NOTE | 2020-07-10 09:11 | W.PM.OPSUD ---
Surgery/Procedure H&P Update DATE OF PROCEDURE: July 10, 2020 DATE H&P PERFORMED: 07/09/20 H&P UPDATE INFORMATION: I have reviewed H&P completed within last 30 days, I have examined patient prior to procedure and No changes to prior documentation PREOP DIAGNOSIS: NSTEMI PATIENT REASSESSED PRIOR TO SEDATION, WITH NO CHANGE NOTED: Yes PHYSICAL EXAM: alert, oriented x 3, clear to auscultation bilaterally and regular rate & rhythm AIRWAY EVAL/ANESTHESIA PLAN: normal airway, see other exam findings, ASA III, Monitored Anesthesia, Local Anesthesia, Risks, benefits & alternatives of sedation and/or procedure discussed and Patient agrees to continue as planned
--- NOTE | 2020-07-10 11:02 | P.PN_ITS ---
Subjective Subjective: Interval history: After angiogram she is feeling well. Denies any chest pain or pressure. Denies shortness of breath. No discomfort in the right groin. Vitals/I&O/Wt Last Vital Signs Temp 97.6 F 07/10/20 06:52 Pulse 69 07/10/20 06:52 Resp 19 H 07/10/20 06:52 BP 168/87 07/10/20 06:52 Pulse Ox 95 07/10/20 06:52 07/09/20 07/10/20 07/10/20 22:59 06:59 14:59 Intake Total 170 / 460 Balance 170 / 230 Weight last 48 hrs Weight 62.596 kg Weight 62.142 kg Weight 62.142 kg Weight 58.967 kg Physical Exam Const: COMMON NORMALS: no acute distress and patient oriented x3 ORIENTATION/CONSCIOUSNESS: Yes awake HENMT: COMMON NORMALS: oropharynx normal Neck/C-Spine: COMMON NORMALS: no JVD Resp: COMMON NORMALS: normal respiratory effort AUSCULTATION: rales (scattered coarse crackles) Cardio: COMMON NORMALS: no JVD, regular rhythm, S1 normal heart sound present, S2 normal heart sound present and No murmurs present (Cardio) RHYTHM: regular rhythm HEART SOUNDS: S1 normal heart sound present and S2 normal heart sound present GI: COMMON NORMALS: Normal to inspection, nondistended, normoactive bowel sounds present, Soft to palpation and non-tender PALPATION: Yes Soft to palpation Extremity: COMMON NORMALS: no joint enlargement and no pedal edema OTHER: Right groin covered by dressing, no bleeding, no surrounding ecchymosis, right lower extremity perfused Neuro: COMMON NORMALS: patient oriented x3 and moves all extremities Skin: COMMON NORMALS: no rashes or lesions noted GENERAL SKIN EXAM: no rashes or lesions noted Data : 07/10/20 03:30 07/10/20 03:30 Micro: Microbiology 07/09/20 11:05 Urine Culture - Preliminary Urine,Clean Catch Gram Negative Rods A&P Assessment and plan (1) NSTEMI (non-ST elevated myocardial infarction): Noted 99% stenosis in circumflex artery requiring stenting. Doing well following angiogram. Monitor following angiogram. Will reassess renal function in the morning. Continue aspirin, Plavix, Atorvastatin, Metoprolol IMDUR Telemetry TSH normal Lipid profile done HbA1c 5.5 Status: Acute (2) Hypertension: Currently blood pressure soft, although overall blood could be better c ontrolled, possibly due to held lisinopril and HCTZ. This may be resumed if renal function remains stable. Metoprolol. Cardiac diet Status: Acute (3) Diabetes: Low-dose sliding scale insulin Fingerstick glucose N.p.o. after midnight Status: Acute (4) Gout: Allopurinol 100 mg p.o. daily Status: Acute (5) GERD (gastroesophageal reflux disease): Protonix 40 mg oral daily Status: Acute (6) Leukocytosis: Pro-Tu[place] normal Treat UTI Status: Acute (7) UTI (urinary tract infection): Gram-negative rods. Rocephin. Follow culture. Status: Acute (8) Pulmonary fibrosis: Noted on chest x-ray. Not sure whether this is a known problem. Coarse crackles scattered on exam. She is doing well on room air. Status: Acute Attestations Medical Necessity Statement*: Continue admission for assessment and management of NSTEMI, optimization of medications for CAD, HTN, post angiography care. Coding Level of Care Code Acute [employer] for [facility] Fwd Diagnoses NSTEMI (non-ST elevated myocardial infarction) I21.4 Hypertension I10 Diabetes E11.9 Gout M10.9 GERD (gastroesophageal reflux disease) K21.9 Leukocytosis D72.829 UTI (urinary tract infection) N39.0 Pulmonary fibrosis J84.10
--- NOTE | 2020-07-10 16:00 | PC.NURSE ---
PTT still pending
[2020-07-10 16:16] LABS: Partial Thromboplastin Time 172.7 SECONDS (23.9-36.7)
[2020-07-10 17:47] LABS: Partial Thromboplastin Time 46.5 SECONDS (23.9-36.7)
[2020-07-10] MEDS: metoprolol tartrate 25 mg Tablet PO (19:05)
--- NOTE | 2020-07-10 19:14 | PC.NURSE ---
Received report from ISABELA Solis. Patient resting in bed watching tv and talking on the phone. Patient is s/p [facility] with right femoral access and sheath in place attached to a pressure bag. Instructed patient on sheath removal and patient verbalized understanding. No distress observed.
--- NOTE | 2020-07-10 20:06 | PC.NURSE ---
Initiated sheath removal at 1933 per protocol. Hemostasis achieved immediately. VS remained WNL during procedure. Maintained pressure for 20min. No s/s of bleeding or hematoma formation at this time. Covered site with povidone-iodine, folded 4x4, and bio-occlusive dressing. Instructed patient on site care and restrictions. Patient verbalized complete understanding. Noted patient to have some feelings of restless leg. Will monitor site closely for bleeding or hematoma formation. Patient denies pain or other needs. No distress observed.
[2020-07-10] MEDS: atorvastatin 40 mg Tablet 80 MG PO (20:59)
[2020-07-10] MEDS: cefTRIAXone 1,000 MG in sodium chloride 0.9% (plus) 50 ML 100 MG IV (21:00)
--- NOTE | 2020-07-10 21:03 | PC.NURSE ---
In to see patient and assess right groin site. Patient had turned over to her left side. Observed right groin site dressing to remain c,d,i with no s/s of bleeding or hematoma formation observed. Site is soft and supple. Patient denies pain to site. Reinforced instruction on site care and restrictions. Patient verbalized complete understanding however will require close monitoring of site.
--- NOTE | 2020-07-10 21:56 | PC.NURSE ---
Patient lying on left side. No s/s of bleeding or hematoma formation observed at this time. Patient continue to deny pain. No distress observed.
--- NOTE | 2020-07-11 00:34 | PC.NURSE ---
Patient lying supine. Dressing to right groin remains c,d,i. No s/s bleeding or hematoma formation. No distress observed.
--- NOTE | 2020-07-11 03:06 | PC.NURSE ---
Patient up to bathroom. Right groin dressing remains c,d,i with no s/s of bleeding or hematoma formation observed. Patient continues to deny pain to site. Patient denies other complaints or needs at this time. No distress observed.
[2020-07-11 04:00] VITALS: BP 138/72; PULSE 84; RESP 10; TEMP 37.1; O2SAT 95
[2020-07-11 05:06] LABS: Basophils % 0.3 %; Eosinophils # 0.3 10^3/uL (0.0-0.8); Eosinophils % 2.6 %; Hematocrit 30.9 % (37.0-47.0); Hemoglobin 9.7 g/dL (11.5-15.3); Lymphocytes # 2.7 10^3/uL (0.8-4.8); Lymphocytes % 22.9 %; Mean Corpuscular HGB Conc 31.4 g/dL (30.0-36.0); Mean Corpuscular Hemoglobin 29.6 pg (28.0-34.0); Mean Corpuscular Volume 94.2 fL (81-99); Mean Platelet Volume 10.8 fL (7.4-10.4); Monocytes # 1.3 10^3/uL (0.2-0.9); Monocytes % 10.8 %; Neutrophils # 7.39 10^3/uL (1.8-7.7); Neutrophils % 63.1 %; Nucleated Red Blood Cells % 0 %; Platelet Count 274 10^3/cmm (130-400); Red Blood Count 3.28 10^6/uL (4.1-5.3); Red Cell Distribution Width 15.5 % (12.1-15.1); White Blood Count 11.7 10^3/uL (4.0-10.0)
[2020-07-11 05:30] LABS: Alanine Aminotransferase 14 U/L (0-33); Albumin Level 3.5 g/dL (3.5-5.2); Alkaline Phosphatase 101 IU/L (35-105); Anion Gap 16.5 (5-19); Aspartate Amino Transferase 49 U/L (0-32); Blood Urea Nitrogen 13 mg/dL (8-23); Calcium 8.9 mg/dL (8.5-10.5); Carbon Dioxide 25 mmol/L (22-29); Chloride 99 mmol/L (98-107); Globulin 2.4 g/dL (1.3-4.6); Glucose 110 mg/dL (65-115); Osmolality Calculated 285 mOsm/kg (285-295); Phosphorus 2.7 mg/dL (2.5-4.5); Potassium 3.5 mmol/L (3.5-5.1); Sodium 137 mmol/L (136-145); Total Bilirubin 0.3 mg/dL (0.15-1.2); Total Protein 5.9 g/dL (6.6-8.7)
[2020-07-11 06:00] VITALS: PULSE 79
[2020-07-11 06:36] LABS: Glucose Point of Care 120 mg/dL (70-110)
[2020-07-11 08:00] VITALS: BP 138/72; PULSE 84; RESP 13
[2020-07-11] MEDS: allopurinol 300 mg Tablet PO (08:11)
[2020-07-11] MEDS: metoprolol tartrate 25 mg Tablet PO (08:11)
[2020-07-11] MEDS: isosorbide mononitrate ER 30 mg Tablet PO (08:11)
[2020-07-11] MEDS: clopidogrel 75 mg Tablet PO (08:11)
[2020-07-11] MEDS: pantoprazole DR 40 mg Tablet PO (08:13)
[2020-07-11 08:15] VITALS: PULSE 80; RESP 16; O2SAT 93
--- NOTE | 2020-07-11 09:09 | P.PN_ITS ---
Subjective Subjective: Interval history: Patient underwent a cardiac conization followed by PCI of the RCA and the circumflex artery lesion yesterday. She had an uneventful postprocedure course. Denies any chest pain or palpitations since then. No unusual shortness of breath. She is ambulating on telemetry without any specific complaints. Medications: Reviewed: Yes Medication Review Details: Current Medications Acetaminophen (Acetaminophen 325 Mg Tablet) 650 mg PO Q6H PRN PRN Reason: MILD PAIN Hydrocodone Bitart/Acetaminophen (Hydrocodone-Acetaminophen 5-325 Mg Tablet) 1 tab PO Q4H PRN PRN Reason: MODERATE TO SEVERE PAIN Al Hydrox/Mg Hydrox/Simethicone (Qlpb-Gvy-Rtuseyudc-Daniel 30 Ml Udc) 30 ml PO Q15M PRN PRN Reason: INDIGESTION Allopurinol (Allopurinol 300 Mg Tablet) 300 mg PO DAILY [facility] Last Admin: 07/11/20 08:11 Dose: 300 mg Documented by: Alprazolam (Alprazolam 0.25 Mg Tablet) 0.25 mg PO TID PRN PRN Reason: ANXIETY Aspirin (Aspirin 81 Mg Ec Tablet) 81 mg PO ONCE [facility] Last Admin: 07/08/20 23:34 Dose: 81 mg Documented by: Atorvastatin Calcium (Atorvastatin 40 Mg Tablet) 80 mg PO BEDTIME [facility] Last Admin: 07/10/20 20:59 Dose: 80 mg Documented by: Atropine Sulfate (Atropine 1 Mg/Ml Sdv 1 Ml) 0.5 mg IVP PRN PRN PRN Reason: Symptomatic bradycardia Bisacodyl (Bisacodyl 5 Mg Tablet) 10 mg PO DAILY PRN PRN Reason: CONSTIPATION Clopidogrel Bisulfate (Clopidogrel 75 Mg Tablet) 75 mg PO DAILY [facility] Last Admin: 07/11/20 08:11 Dose: 75 mg Documented by: Ceftriaxone Sodium 1,000 mg/ (Sodium Chloride) 50 mls @ 100 mls/hr IV Q12H [facility]; Protocol Last Admin: 07/10/20 21:00 Dose: 100 mls/hr Documented by: Isosorbide Mononitrate (Isosorbide Mononitrate Er 30 Mg Tablet) 30 mg PO DAILY [facility] Last Admin: 07/11/20 08:11 Dose: 30 mg Documented by: Isosorbide Mononitrate (Isosorbide Mononitrate Er 30 Mg Tablet) 30 mg PO NOW [facility] Last Admin: 07/09/20 00:50 Dose: 30 mg Documented by: Magnesium Hydroxide (Magnesium Hydroxide 30 Ml Udc) 30 ml PO DAILY PRN PRN Reason: CONSTIPATION Metoprolol Tartrate (Metoprolol Tartrate 25 Mg Tablet) 25 mg PO BID [facility] Last Admin: 07/11/20 08:11 Dose: 25 mg Documented by: Morphine Sulfate (Morphine 4 Mg/Ml Sdv 1 Ml) 2 mg IVP Q4H PRN PRN Reason: SEVERE PAIN Naloxone HCl (Naloxone 0.4 Mg/Ml Sdv) 0.1 mg IVP Q2M PRN PRN Reason: OPIATERV Naloxone HCl (Naloxone 0.4 Mg/Ml Sdv) 0.1 mg IVP Q2M PRN PRN Reason: RESPIRATORY RATE < 8/MIN Nitroglycerin (Nitroglycerin 0.4 Mg Sublingual Tablet) 0.4 mg SUBLINGUAL Q5M PRN PRN Reason: CHEST PAIN Nitroglycerin (Nitroglycerin 0.4 Mg Sublingual Tablet) 0.4 mg SUBLINGUAL Q5M PRN PRN Reason: CHEST PAIN Non-Formulary Medication (Cholecalciferol (Vitamin D3)) 50 mcg PO ONCE [facility] Non-Formulary Medication (Cyanocobalamin (Vitamin B-12)) 5,000 mcg PO DAILY [facility] Last Admin: 07/11/20 08:11 Dose: Not Given Documented by: Ondansetron HCl (Ondansetron 2 Mg/Ml Sdv 2 Ml) 4 mg IVP Q8H PRN PRN Reason: vomiting, or N/V if npo Pantoprazole Sodium (Pantoprazole Dr 40 Mg Tablet) 40 mg PO DAILY [facility] Last Admin: 07/11/20 08:13 Dose: 40 mg Documented by: Temazepam (Temazepam 15 Mg Capsule) 15 mg PO BEDTIME PRN PRN Reason: INSOMNIA Vitals/I&O/Wt Last Vital Signs Temp 98.7 F 07/11/20 04:00 Pulse 80 07/11/20 08:15 Resp 16 07/11/20 08:15 BP 138/72 07/11/20 04:00 Pulse Ox 93 07/11/20 08:15 07/10/20 07/11/20 07/11/20 22:59 06:59 14:59 Intake Total 360 / 360 240 / 240 Balance 360 / 360 240 / 240 Weight last 48 hrs Weight 136 lb 12.8 oz Weight 138 lb Physical Exam Narrative: EXAM NARRATIVE: GENERAL: The patient is alert and oriented times three. Not in any acute distress. HEENT: No significant pallor, icterus or lymphadenopathy. The pupils are symmetrical. Oral cavity: There are no mucous membrane lesions. Funduscopic examination: The fundus is not visualized NECK: Trachea appears to be central. No masses noted. No JVD or thyromegaly appreciated. No carotid bruit. RESPIRATORY: Chest is symmetrical. No intercostals muscle retraction or any accessory muscle activation. There is no chest wall tenderness. Breath sounds are heard bilaterally. No rales or rhonchi heard. No evidence of any consolidation. BREASTS: Deferred. HEART: The PMI is in the 5th left intercostals space just inside the midclavicular line. No palpable precordial events. S1 and S2 are normal. No S3 or S4 heard. No pericardial rub or any click heard. ABDOMEN: No vessel pulsations or distention. No tenderness. No organomegaly appreciated. No abdominal bruit. Bowel sounds are normally heard. : Deferred. RECTAL: Deferred. LYMPHATIC: No lymphadenopathy noted in the neck or groin. EXTREMITIES: No hematoma or bleeding of the right groin. Distal pulses are palpated in good volume and amplitude. MUSCULOSKELETAL: No acute joint deformities or swelling. SKIN: There are no significant scars or skin rash noted. NEUROPSYCHIATRIC: The patient is alert and oriented x3. Appears to be in a good mood. The higher functions are grossly within normal limits. No tremors or rigidity noted. Const: COMMON NORMALS: alert Resp: COMMON NORMALS: clear to auscultation bilaterally AUSCULTATION: clear to auscultation bilaterally Neuro: SENSORIUM/ORIENTATION: Yes alert Data : 07/11/20 04:41 07/11/20 04:41 Other Labs: Laboratory Last Values WBC 11.7 10^3/uL (4.0-10.0) H 07/11/20 04:41 RBC 3.28 10^6/uL (4.1-5.3) L 07/11/20 04:41 Hgb 9.7 g/dL (11.5-15.3) L 07/11/20 04:41 Hct 30.9 % (37.0-47.0) L 07/11/20 04:41 MCV 94.2 fL (81-99) 07/11/20 04:41 MCH 29.6 pg (28.0-34.0) 07/11/20 04:41 MCHC 31.4 g/dL (30.0-36.0) 07/11/20 04:41 RDW 15.5 % (12.1-15.1) H 07/11/20 04:41 Plt Count 274 10^3/cmm (130-400) 07/11/20 04:41 MPV 10.8 fL (7.4-10.4) H 07/11/20 04:41 Neut % (Auto) 63.1 % 07/11/20 04:41 Lymph % (Auto) 22.9 % 07/11/20 04:41 [place] % (Auto) 10.8 % 07/11/20 04:41 Eos % (Auto) 2.6 % 07/11/20 04:41 Baso % (Auto) 0.3 % 07/11/20 04:41 Neut # (Auto) 7.39 10^3/uL (1.8-7.7) 07/11/20 04:41 Lymph # (Auto) 2.7 10^3/uL (0.8-4.8) 07/11/20 04:41 [place] # (Auto) 1.3 10^3/uL (0.2-0.9) H 07/11/20 04:41 Eos # (Auto) 0.3 10^3/uL (0.0-0.8) 07/11/20 04:41 Baso # (Auto) 0.0 10^3/uL (0.0-0.1) 07/11/20 04:41 Nucleated RBC % (auto) 0 % 07/11/20 04:41 Nucleated RBCs # 0.0 /100WBC 07/11/20 04:41 PT 13.70 SECONDS (12.1-14.9) 07/09/20 03:40 INR 1.01 (0.8-1.2) 07/09/20 03:40 APTT 46.5 SECONDS (23.9-36.7) H D 07/10/20 17:24 Sodium 137 mmol/L (136-145) 07/11/20 04:41 Potassium 3.5 mmol/L (3.5-5.1) 07/11/20 04:41 Chloride 99 mmol/L (98-107) 07/11/20 04:41 Carbon Dioxide 25 mmol/L (22-29) 07/11/20 04:41 Anion Gap 16.5 (5-19) 07/11/20 04:41 BUN 13 mg/dL (8-23) 07/11/20 04:41 Creatinine 1.0 mg/dL (0.5-0.9) H 07/11/20 04:41 GFR Calculation Not Reportable 07/11/20 04:41 Glucose 110 mg/dL (65-115) 07/11/20 04:41 POC Glucose 120 mg/dL (70-110) 07/11/20 06:32 Estimat Average Glucose 111 07/09/20 03:40 Hemoglobin A1c 5.5 % (4.0-6.0) 07/09/20 03:40 Calculated Osmolality 285 mOsm/kg (285-295) 07/11/20 04:41 Calcium 8.9 mg/dL (8.5-10.5) 07/11/20 04:41 Phosphorus 2.7 mg/dL (2.5-4.5) 07/11/20 04:41 Magnesium 2.0 mg/dL (1.7-2.3) 07/11/20 04:41 Total Bilirubin 0.3 mg/dL (0.15-1.2) 07/11/20 04:41 AST 49 U/L (0-32) H 07/11/20 04:41 ALT 14 U/L (0-33) 07/11/20 04:41 Alkaline Phosphatase 101 IU/L (35-105) 07/11/20 04:41 Troponin T Baseline 9 ng/L (0-10) 07/08/20 18:00 Troponin T 120 Minute 74.30 ng/L (0-10) H 07/08/20 19:35 Delta Troponin T 65.30 ABS# (0-10) H* 07/08/20 19:35 Troponin T Hi Sens 6Hr 293.8 ng/L (0-10) H 07/08/20 23:46 Troponin T Hi Sens 6Hr Delta 284.8 ng/L (0-12) H* 07/08/20 23:46 NT-Pro-B Natriuret Pep 3732 pg/mL (0-450) H 07/09/20 03:40 Total Protein 5.9 g/dL (6.6-8.7) L 07/11/20 04:41 Albumin 3.5 g/dL (3.5-5.2) 07/11/20 04:41 Globulin 2.4 g/dL (1.3-4.6) 07/11/20 04:41 Triglycerides 246 mg/dL (0-150) H 07/09/20 03:40 Cholesterol 176 mg/dL (0-200) 07/09/20 03:40 LDL Cholesterol, Calc 99 mg/dL (50-129) 07/09/20 03:40 HDL Cholesterol 28 mg/dL (60-100) L 07/09/20 03:40 LDL/HDL Ratio 3.54 RATIO (0.00-3.22) H 07/09/20 03:40 Cholesterol/HDL Ratio 6.29 mg/dL (0.0-4.40) H 07/09/20 03:40 Lipase 34 U/L (13-60) 07/08/20 18:00 Procalcitonin 0.10 ng/mL (0-0.5) 07/09/20 03:40 TSH 1.52 uIU/mL (0.27-4.20) 07/09/20 03:40 A&P Assessment and plan (1) NSTEMI (non-ST elevated myocardial infarction): Patient was found to have severe two-vessel coronary disease. She underwent PCI of the circumflex and the right coronary artery lesions. Currently she seems to be stable. She may be continue on the Plavix and aspirin. Status: Acute (2) Benign essential hypertension with target blood pressure below 140/90: The blood pressure seems to be getting under control. We will continue to optimize the medical treatment. Status: Acute (3) Dyslipidemia (high LDL; low HDL): Continue on the Lipitor. He had a repeat lipid profile in 2 months and the dose of the medication need to be adjusted Status: Acute (4) Anemia: The hemoglobin has been fluctuating. Latest hemoglobin is 10.1. She has no obvious bleeding. May consider work-up of anemia as an outpatient Status: Acute Qualifiers: Anemia type: unspecified type Qualified Code(s): D64.9 - Anemia, unspecified Additional A&P Information If she continues remain stable, may be discharged home today. I may see her in the office in 3 weeks. She will be seen by the nurse practitioner at the [facility] next week. May continue on the current medications. The medications were reviewed with Dr. Godoy . Attestations Medical Necessity Statement*: Possible discharge home today Coding Level of Care Code Acute Insurance Job Titles for [facility] Fwd Exam Expanded Problem Focused Diagnoses NSTEMI (non-ST elevated myocardial infarction) I21.4 Benign essential hypertension with target blood pressure below 140/90 I10 Dyslipidemia (high LDL; low HDL) E78.5 Anemia D64.9 Anemia type: unspecified type
--- NOTE | 2020-07-11 09:17 | PC.NURSE ---
patient resting in bed at this time. states that she is ready to see dr. ring so she can home today. patient denies any needs at this time. call light within reach.
[2020-07-11 12:00] VITALS: BP 122/61; PULSE 74; RESP 18
--- NOTE | 2020-07-11 12:06 | PM.DCS ---
Discharge Providers Date of Admission: 07/08/20 20:49 Date of Discharge: July 11, 2020 Attending Provider at Admission: Cameron Barrientos MD Attending Provider at Discharge: Edgar Hartmann Primary Care Provider: SOUMYA Elliott Diagnoses at Discharge Discharge Diagnosis (1) NSTEMI (non-ST elevated myocardial infarction): Status: Acute (2) Benign essential hypertension with target blood pressure below 140/90: Status: Acute (3) Dyslipidemia (high LDL; low HDL): Status: Acute (4) Anemia: Status: Acute Qualifiers: Anemia type: unspecified type Qualified Code(s): D64.9 - Anemia, unspecified (5) UTI (urinary tract infection): Status: Acute (6) Pulmonary fibrosis: Status: Acute Reason for Visit Reason for Visit: CHEST PAIN, NAUSEA Hospital Course Hospital Course Very pleasant 84-year-old lady with history of HTN, DM 2, gout, GERD was admitted for assessment and treatment of non-STEMI after presenting with chest pain. During hospitalization also found to have a urinary tract infection. Initially medically treated with aspirin, Plavix, statin, beta-patricia, lisinopril, Imdur. Blood pressures transiently elevated but better after initiation of Imdur and restarting with lisinopril. Echocardiogram was obtained which showed normal ejection fraction, grade 2 diastolic dysfunction, thickened mitral valve, tach in the aortic valve, mild mitral and aortic regurgitation. Moderate pulmonary hypertension noted with estimated peak systolic pulmonary pressure of 56 mmHg. Chest x-ray on presentation without acute normality, but with noted stable interstitial pulmonary fibrosis. She underwent additional assessment by coronary angiography with finding of 99% stenosis of left circumflex coronary artery requiring stenting. She has done well following intervention, and is feeling very well today. She has had no recurrence of chest pain. She is ambulating well. Renal function remains good. Meloxicam is discontinued for now. Please reassess renal function, consider alternative medications or resume if deemed safe. Urine culture eventually growing E. coli resistant to a number of antibiotics, but sensitive to fluoroquinolones, and she will complete antibiotic course with ciprofloxacin. Please reassess with regards to incidentally noted pulmonary fibrosis. Please discuss referral for pulmonary function testing, possibly pulmonology assessment. Incidentally noted anemia after rehydration. Hemoglobin 9.7. Please recheck blood counts, and if persistent perform additional assessment. Physical Exam Const: COMMON NORMALS: no acute distress and patient oriented x3 GENERAL APPEARANCE: cooperative ORIENTATION/CONSCIOUSNESS: Yes awake OTHER: Pleasant, conversant. HENMT: COMMON NORMALS: oropharynx normal Neck/C-Spine: COMMON NORMALS: no JVD Resp: COMMON NORMALS: normal respiratory effort AUSCULTATION: rales (scattered coarse crackles) Cardio: COMMON NORMALS: no JVD, regular rhythm, S1 normal heart sound present, S2 normal heart sound present and No murmurs present (Cardio) RHYTHM: regular rhythm HEART SOUNDS: S1 normal heart sound present and S2 normal heart sound present GI: COMMON NORMALS: Normal to inspection, nondistended, normoactive bowel sounds present, Soft to palpation and non-tender PALPATION: Yes Soft to palpation Extremity: COMMON NORMALS: no joint enlargement and no pedal edema OTHER: Right groin covered by dressing, no bleeding, no surrounding ecchymosis, right lower extremity perfused Neuro: COMMON NORMALS: patient oriented x3 and moves all extremities Skin: COMMON NORMALS: no rashes or lesions noted GENERAL SKIN EXAM: no rashes or lesions noted Discharge Data Data Completed and Pending: Completed Studies During Hospitalization Category Date Time Status XR chest 1V peggy ble [id number] Stat Exams 07/08/20 17:50 Completed CV echo complete* [id number] Routine Ultrasound 07/09/20 07:00 Completed Pending at discharge Category Date Time Status STAFF CONSULTANT request for service Routin e Exams 07/10/20 09:00 Taken Labs from last 24 hours 07/11/20 07/11/20 07/11/20 06:32 04:41 04:41 WBC 11.7 H RBC 3.28 L Hgb 9.7 L Hct 30.9 L MCV 94.2 MCH 29.6 MCHC 31.4 RDW 15.5 H Plt Count 274 MPV 10.8 H Neut % (Auto) 63.1 Lymph % (Auto) 22.9 Nicholas % (Auto) 10.8 Eos % (Auto) 2.6 Baso % (Auto) 0.3 Neut # (Auto) 7.39 Lymph # (Auto) 2.7 Nicholas # (Auto) 1.3 H Eos # (Auto) 0.3 Baso # (Auto) 0.0 Nucleated RBC % (a uto) 0 Nucleated RBCs # 0.0 APTT Sodium 137 Potassium 3.5 Chloride 99 Carbon Dioxide 25 Anion Gap 16.5 BUN 13 Creatinine 1.0 H GFR Calculation Not Reportable Glucose 110 POC Glucose 120 Calculated Osmolal ity 285 Calcium 8.9 Phosphorus 2.7 Magnesium 2.0 Total Bilirubin 0.3 AST 49 H ALT 14 Alkaline Phosphata se 101 Total Protein 5.9 L Albumin 3.5 Globulin 2.4 07/10/20 07/10/20 17:24 14:24 WBC RBC Hgb Hct MCV MCH MCHC RDW Plt Count MPV Neut % (Auto) Lymph % (Auto) Nicholas % (Auto) Eos % (Auto) Baso % (Auto) Neut # (Auto) Lymph # (Auto) Nicholas # (Auto) Eos # (Auto) Baso # (Auto) Nucleated RBC % (a uto) Nucleated RBCs # APTT 46.5 H D 172.7 H* Sodium Potassium Chloride Carbon Dioxide Anion Gap BUN Creatinine GFR Calculation Glucose POC Glucose Calculated Osmolal ity Calcium Phosphorus Magnesium Total Bilirubin AST ALT Alkaline Phosphata se Total Protein Albumin Globulin Addt'l Data from Hospital Stay: Microbiology 07/09/20 11:05 Urine,Clean Catch Urine Culture - Final Escherichia coli Vitals: Last Vital Signs Temp 98.7 F 07/11/20 04:00 Pulse 80 07/11/20 08:15 Resp 16 07/11/20 08:15 BP 138/72 07/11/20 04:00 Pulse Ox 93 07/11/20 08:15 Discharge Plan Discharge Patient Disposition: Home Condition: Stable Prescriptions: New isosorbide mononitrate 30 mg Tablet Extended Release 24 Hr 30 mg PO DAILY Qty: 30 RF: 0 clopidogrel 75 mg Tablet 75 mg PO DAILY Qty: 30 RF: 0 metoprolol tartrate 25 mg Tablet 25 mg PO BID Qty: 60 RF: 0 atorvastatin 40 mg Tablet 40 mg PO BEDTIME Qty: 30 RF: 0 ciprofloxacin HCl 500 mg Tablet 250 mg PO BID Qty: 10 RF: 0 Continued lisinopril 40 mg tablet 40 mg PO ONCE RF: 0 furosemide [Lasix] 20 mg tablet 20 mg PO QAM RF: 0 hydrochlorothiazide 25 mg tablet 25 mg PO QAM RF: 0 cholecalciferol (vitamin D3) 50 mcg (2,000 unit) capsule 50 mcg PO ONCE RF: 0 cyanocobalamin (vitamin B-12) 5,000 mcg capsule 5,000 mcg PO DAILY RF: 0 aspirin 81 mg tablet,delayed release (DR/EC) 81 mg PO ONCE RF: 0 alendronate 70 mg tablet 70 mg PO Q7D RF: 0 omeprazole 20 mg Capsule,Delayed Release(Dr/Ec) 20 mg PO DAILY RF: 0 allopurinol 300 mg tablet 300 mg PO DAILY RF: 0 Discontinued metoprolol succinate 50 mg tablet extended release 24 hr 50 mg PO BID RF: 0 meloxicam 15 mg tablet 15 mg PO DAILY RF: 0 Discharge Orders: Discharge Order (Routine); Ordered 07/11/20 Ordered By: Edgar Hartmann Referrals: Kyara Garcia MD [Physician] - (3 weeks) Yun Paiz FNP [Nurse Practitioner] - 1 week Nadia Petersen FNP [Primary Care Provider] - 4-7 days Discharge Diet: Cardiac Discharge Activity: Increase activity as tolerated Patient Instructions: Ciprofloxacin (By mouth), Metoprolol (By mouth), Isosorbide Mononitrate (By mouth), Atorvastatin (By mouth), Clopidogrel (By mouth), Myocardial Infarction (GEN), Left Heart Catheterization (DC), Coronary Angioplasty (DC), Urinary Tract Infection in Women (GEN), Chronic Hypertension (GEN), Anemia (GEN) Activity Restrictions/Additional Instructions: Avoid lifting more than 10 pounds for 2 days. If you experience any nonresolving chest pain or pressure, severe shortness of breath, fainting, any swelling bleeding or pulsatile mass in the right groin, or any other concerning symptoms please seek medical attention immediately. Please follow-up with cardiology and your primary care doctor in office due to heart attack. For urinary tract infection you are given a course of 5 days of antibiotic treatment with ciprofloxacin. Please discuss and have your primary care doctor investigate further regarding your anemia. Please discuss with your doctor regarding findings of chronic scarring in your lungs. Discussed referral for additional assessment by pulmonary function testing. Discussed also possible referral for assessment by a lung specialist. Discharge Attestations Time Spent in Discharge Care*: greater than 30 min Quality Metrics Clinical Quality Measures During this hospital stay, did patient experience: None Coding Level of Care Code Acute Metallurgical Engineering Technician for [facility] Fwd Diagnoses NSTEMI (non-ST elevated myocardial infarction) I21.4 Benign essential hypertension with target blood pressure below 140/90 I10 Dyslipidemia (high LDL; low HDL) E78.5 Anemia D64.9 Anemia type: unspecified type UTI (urinary tract infection) N39.0 Pulmonary fibrosis J84.10
[2020-07-11 12:42] VITALS: BP 121/61; PULSE 80; RESP 16; O2SAT 93
--- NOTE | 2020-07-11 13:15 | PC.NURSE ---
discharge instructions given to patient. medications sent electronically to [facility]. iv was removed, tip intact and patient tolerated well. patient then transferred to wheelchair and taken to entrance where private vehicle picked her up.
== END 2020-07-11 13:15 | disposition home or self-care (01) | DRG 246 ==
LOC: ER 18:40 → CSU 21:20
PROVIDERS: Internal Medicine; Internal Medicine Cardiovascular Disease; Admitting Provider Internal Medicine; Emergency Provider Emergency Medicine; PCP Nurse Practitioner Family; Visit Provider Internal Medicine
PROC: 027237Z Dilation of Coronary Artery, Three Arteries with Four or More Drug-eluting Intraluminal Devices, Percutaneous Approach (ICD-10-PCS; principal; 2020-07-10 08:30)
DX: I21.4 Non-ST elevation (NSTEMI) myocardial infarction (principal); N39.0 Urinary tract infection, site not specified; I10 Essential (primary) hypertension; K21.9 Gastro-esophageal reflux disease without esophagitis; D64.9 Anemia, unspecified; J84.10 Pulmonary fibrosis, unspecified; M10.9 Gout, unspecified; E11.9 Type 2 diabetes mellitus without complications; E78.5 Hyperlipidemia, unspecified; Z79.82 Long term (current) use of aspirin; Z87.891 Personal history of nicotine dependence
CPT/HCPCS: 12345; 36415; 36416; 71045; 80053; 80061; 82962; 83036; 83690; 83735; 83880; 84100; 84145; 84443; 84484; 85014; 85018; 85025; 85347; 85610; 85730; 87077; 87086; 87186; 93005; 93306; 93452; 96372; 96375; 99283; C1725; C1769; C1874; C1887; C1894; C9600; C9601; J0360; J0696; J1644; J1650; J2250; J2270; J3010; J3490; J7030; Q0163; Q9967

== ENCOUNTER → 2020-07-18 14:32 | Outpatient (BNVA) | payer MEDICARE, SELFPAY | PROVIDERS: PCP Nurse Practitioner Family; Visit Provider Nurse Practitioner Family | DX: I25.119 Atherosclerotic heart disease of native coronary artery with unspecified angina pectoris (principal) | CPT/HCPCS: 80048 ==

== ENCOUNTER 2020-07-22 19:25 | Emergency (ER) | payer MEDICARE, SELFPAY ==
[2020-07-22 19:26] VITALS: BP 190/79; PULSE 66; RESP 18; TEMP 36.4; O2SAT 98; BMI 20.9
--- NOTE | 2020-07-22 19:30 | ED_ITS ---
HPI - Epistaxis General: Chief complaint: Epistaxis Stated complaint: NOSE BLEED Time Seen by Provider: 07/22/20 19:26 Source: patient and EMS Mode of arrival: EMS Limitations: no limitations History of Present Illness: HPI Narrative: 84-year-old female states she had a nosebleed started roughly 3. States she is having a hard time controlling it she is trying to placed Kleenex is up her nose. Patient came in by EMS and bleeding is since resolved. She does not have any type of clamp or anything in place and she has no bleeding. She denies any headache. She denies any li ghtheadedness. She does have a history hypertension her blood pressure here is 190/88. Associated symptoms: Deny fever(s), headache(s) or vomiting Review of Systems Const: Denies: fever(s), chills, body aches or change in appetite Eyes: Denies: blurry vision or eye discomfort ENMT: Reports: epistaxis Card: Denies: chest pain Resp: Denies: dyspnea GI: Denies: abdominal pain, nausea, vomiting or diarrhea : Denies: dysuria Musc: Denies: neck pain or back pain Skin/Breast: Denies: rash Neuro: Denies: headache(s) Psych: Denies: depression Anant/Lymph: Denies: easy bruising All/Imm: Denies: urticaria PFSH ED PFSH: Medical History Anemia Benign essential hypertension with target blood pressure below 140/90 Coronary artery disease Diabetes Dyslipidemia (high LDL; low HDL) GERD (gastroesophageal reflux disease) Gout History of small bowel obstruction Leukocytosis NSTEMI (non-ST elevated myocardial infarction) Social History Smoking and tobacco status: former smoker Quit status (tobacco): has quit using tobacco Year quit tobacco: 1984 Second hand smoke exposure: No Alcohol intake: never Adopted: No Caregiver/support person: Yes Lives independently: Yes Household members: spouse and family Housing: House Marital status: Marital status details: month Highest education level completed: High School Graduate service: No Current occupational status: retired Pets and animals: No History of recent travel: No Leisure activites: music and games Sexually active: No Current gender identity: Female Karley/Latter-Day: Amish Special karley needs: No Agree to transfusion: No Financial difficulty paying for basics: Decline to Answer Physical Exam Const: COMMON NORMALS: no acute distress, patient oriented x3 and healthy appearing HENMT: COMMON NORMALS: normocephalic and atraumatic HEAD & SCALP: normocephalic and atraumatic OTHER: Dried blood to left nostril with no active bleeding Eye: COMMON NORMALS: Equal, round and reactive pupils present and EOMs intact bilaterally PUPIL: Yes Equal, round and reactive pupils present Neck/C-Spine: COMMON NORMALS: full ROM and supple Chest: COMMONS NORMALS: normal inspection of the chest and normal palpation of entire chest wall Resp: COMMON NORMALS: normal respiratory effort, No retractions, No use of accessory muscles and clear to auscultation bilaterally AUSCULTATION: clear to auscultation bilaterally Cardio: COMMON NORMALS: regular rate, regular rhythm and No murmurs present (Cardio) RATE: regular rate RHYTHM: regular rhythm GI: COMMON NORMALS: Normal to inspection, nondistended, normoactive bowel sounds present, Soft to palpation, non-tender and no masses PALPATION: Yes Soft to palpation Extremity: COMMON NORMALS: normal to inspection and full ROM Neuro: COMMON NORMALS: patient oriented x3, moves all extremities and no focal motor deficits Psych: COMMON NORMALS: mental status grossly normal, Normal thought process present and cooperative THOUGHT PROCESS: Normal thought process present Skin: COMMON NORMALS: no rashes or lesions noted and no wounds GENERAL SKIN EXAM: no rashes or lesions noted Course Vital Signs: Vital signs: Vital Signs Temperature 97.6 F 07/22/20 19:26 Pulse Rate 63 07/22/20 19:44 Respiratory Rate 18 07/22/20 19:44 Blood Pressure 190/88 07/22/20 19:44 Pulse Oximetry 95 07/22/20 19:44 MDM - Epistaxis MDM Narrative: Medical decision making narrative: Patient presents with epistaxis since resolved. Patient's blood pressure here is improved. Did give her instructions how to help stop her nosebleed and she is return if worsening. She is to follow-up with PCP in 2 to 4 days return if worsening. Lab Data: Labs: Lab Results 07/22/20 Range/Units 19:45 WBC 15.3 H (4.0-10.0) 10^3/ uL RBC 3.40 L (4.1-5.3) 10^6/u L Hgb 10.2 L (11.5-15.3) g/dL Hct 31.4 L (37.0-47.0) % MCV 92.4 (81-99) fL MCH 30.0 (28.0-34.0) pg MCHC 32.5 (30.0-36.0) g/dL RDW 14.4 (12.1-15.1) % Plt Count 508 H (130-400) 10^3/c mm MPV 9.7 (7.4-10.4) fL Neut % (Auto) 70.4 % Lymph % (Auto) 21.9 % [place] % (Auto) 5.0 % Eos % (Auto) 1.8 % Baso % (Auto) 0.3 % Neut # (Auto) 10.74 H (1.8-7.7) 10^3/u L Lymph # (Auto) 3.4 (0.8-4.8) 10^3/u L [place] # (Auto) 0.8 (0.2-0.9) 10^3/u L Eos # (Auto) 0.3 (0.0-0.8) 10^3/u L Baso # (Auto) 0.1 (0.0-0.1) 10^3/u L Nucleated RBC % (a uto) 0 % Nucleated RBCs # 0.0 /100WBC Discharge Plan Discharge Patient Disposition: Home Clinical Impression: Epistaxis, Hypertension Condition: Stable Prescriptions: No Action lisinopril 40 mg tablet 40 mg PO ONCE RF: 0 furosemide [Lasix] 20 mg tablet 20 mg PO QAM RF: 0 hydrochlorothiazide 25 mg tablet 25 mg PO QAM RF: 0 cholecalciferol (vitamin D3) 50 mcg (2,000 unit) capsule 50 mcg PO ONCE RF: 0 cyanocobalamin (vitamin B-12) 5,000 mcg capsule 5,000 mcg PO DAILY RF: 0 aspirin 81 mg tablet,delayed release (DR/EC) 81 mg PO ONCE RF: 0 alendronate 70 mg tablet 70 mg PO Q7D RF: 0 omeprazole 20 mg Capsule,Delayed Release(Dr/Ec) 20 mg PO DAILY RF: 0 allopurinol 300 mg tablet 300 mg PO DAILY RF: 0 atorvastatin 40 mg Tablet 40 mg PO BEDTIME Qty: 30 RF: 0 isosorbide mononitrate 30 mg Tablet Extended Release 24 Hr 30 mg PO DAILY Qty: 30 RF: 0 clopidogrel 75 mg Tablet 75 mg PO DAILY Qty: 30 RF: 0 ciprofloxacin HCl 500 mg Tablet 250 mg PO BID Qty: 10 RF: 0 metoprolol tartrate 25 mg Tablet 25 mg PO BID Qty: 60 RF: 0 Discharge Orders: Discharge ED (Routine); Ordered 07/22/20 Ordered By: Manda Gibson Referrals: Nadia Petersen RESEARCH METHODOLOGIST [Primary Care Provider] - 1-3 days Discharge Diet: Advance as tolerated Discharge Activity: Resume usual activity Patient Instructions: Epistaxis (ED) Coding Level of Care Code ED Envelope Machine Operator for [facility] Fwd Exam Comprehensive
[2020-07-22] MEDS: metoprolol tartrate 25 mg Tablet PO (19:37)
[2020-07-22 19:44] VITALS: BP 190/88; PULSE 63; RESP 18; O2SAT 95
[2020-07-22 19:57] LABS: Basophils # 0.1 10^3/uL (0.0-0.1); Basophils % 0.3 %; Eosinophils # 0.3 10^3/uL (0.0-0.8); Eosinophils % 1.8 %; Hematocrit 31.4 % (37.0-47.0); Hemoglobin 10.2 g/dL (11.5-15.3); Lymphocytes # 3.4 10^3/uL (0.8-4.8); Lymphocytes % 21.9 %; Mean Corpuscular HGB Conc 32.5 g/dL (30.0-36.0); Mean Corpuscular Volume 92.4 fL (81-99); Mean Platelet Volume 9.7 fL (7.4-10.4); Monocytes # 0.8 10^3/uL (0.2-0.9); Neutrophils # 10.74 10^3/uL (1.8-7.7); Neutrophils % 70.4 %; Nucleated Red Blood Cells % 0 %; Platelet Count 508 10^3/cmm (130-400); Red Cell Distribution Width 14.4 % (12.1-15.1); White Blood Count 15.3 10^3/uL (4.0-10.0)
[2020-07-22 20:12] VITALS: BP 136/64; PULSE 64; O2SAT 96
== END 2020-07-22 20:12 | disposition home or self-care (01) ==
PROVIDERS: Emergency Provider Emergency Medicine; PCP Nurse Practitioner Family
DX: R04.0 Epistaxis (principal); I10 Essential (primary) hypertension; Z79.82 Long term (current) use of aspirin; Z79.02 Long term (current) use of antithrombotics/antiplatelets; I25.10 Atherosclerotic heart disease of native coronary artery without angina pectoris; E11.9 Type 2 diabetes mellitus without complications; E78.5 Hyperlipidemia, unspecified; I25.2 Old myocardial infarction; Z87.891 Personal history of nicotine dependence
CPT/HCPCS: 12345; 85025; 99281; 99283

== ENCOUNTER → 2020-08-22 11:09 | Outpatient (BNVA) | payer MEDICARE, SELFPAY | PROVIDERS: PCP Nurse Practitioner Family; Visit Provider Internal Medicine Rheumatology | DX: M10.9 Gout, unspecified (principal); M72.2 Plantar fascial fibromatosis; Z87.891 Personal history of nicotine dependence | CPT/HCPCS: 99203 ==

== ENCOUNTER 2020-09-20 13:31 | Outpatient (CLI) | payer MEDICARE, SELFPAY ==
--- NOTE | 2020-09-20 13:39 | XR_ITS ---
WS: [id number] LEFT HIP HISTORY: LEFT HIP PAIN COMPARISON: 05/31/2020 LEFT hip: No acute fracture or dislocation. Severe narrowing of the hip joint. Osteophytes and hypert rophic bone formation around the acetabulum and femoral head. Vascular calcifications. SI joint narrowing and sclerosis. XR/XR hip LT 2-3V wo/w pel* [id number] IMPRESSION: 1. No hip fracture. 2. Moderate to severe LEFT hip joint osteoarthritis.
== END 2020-09-20 13:32 | disposition home or self-care (01) ==
LOC: RADWPI 13:35
PROVIDERS: PCP Nurse Practitioner Family; Visit Provider Nurse Practitioner Family
DX: M16.12 Unilateral primary osteoarthritis, left hip (principal)
CPT/HCPCS: 73502

== ENCOUNTER → 2020-10-07 15:33 | Outpatient (BNVA) | payer MEDICARE, SELFPAY | PROVIDERS: PCP Nurse Practitioner Family; Visit Provider Specialist | DX: M25.552 Pain in left hip (principal) | CPT/HCPCS: 73502 ==

== ENCOUNTER → 2020-10-11 10:04 | Outpatient (BNVA) | payer MEDICARE, SELFPAY | PROVIDERS: PCP Nurse Practitioner Family; Visit Provider Orthopaedic Surgery | DX: M54.5 Low back pain (principal); M48.56XA Collapsed vertebra, not elsewhere classified, lumbar region, initial encounter for fracture; M47.896 Other spondylosis, lumbar region | CPT/HCPCS: 72110 ==

== ENCOUNTER 2020-10-22 13:26 | Outpatient (CLI) | payer MEDICARE, SELFPAY ==
--- NOTE | 2020-10-22 13:45 | MR_ITS ---
WS: [id number] MRI LUMBAR SPINE NONCONTRAST TECHNIQUE: Sagittal T1, T2 and STIR imaging. Axial T1 and T2 imaging. CLINICAL INFORMATION: M25.559 - Pain in unspecified hip COMPARISON: None. FINDINGS: Mild lumbar curve. No acute compression. Chronic compression of the superior endplate L5. No edema. D egenerative disc disease worse at L4-5. L1-L2: Slight narrowing of the right subarticular recess. Spinal canal and foramen are patent. L2-L3: Mild annular bulging. Mild central canal stenosis. Narrowing of the subarticular recess bilate rally. Mild facet arthropathy. Mild right and no significant left foraminal narrowing. L3-L4: Mild annular bulging with slight impingement on the right subarticular recess and traversing r ight L4 nerve root. Mild central canal stenosis. Eccentric disc bulging with mild bilateral foraminal narrowing. Mild facet arthropathy. L4-L5: Grade 1 anterolisthesis. Mild disc bulging with moderate central canal stenosis. Impingement t raversing L5 nerve roots bilaterally. Moderate to advanced facet arthropathy. Moderate bilateral fora mery narrowing. L5-S1: Mild disc bulging and osteophytic ridging. Mild left and no significant right foraminal narrow ing. Moderate facet arthropathy. Mild central canal stenosis in the mid cervical spine seen on the pressroom foreman imaging MR/MR lumbar spine wo con* [id number] IMPRESSION: 1. Mild lumbar curve. No acute compression. 2. Grade 1 anterolisthesis L4 on L5. Chronic compression of the L5 vertebral b hermilo. 3. Moderate central canal stenosis L4-5 with impingement on the subarticular r ecess bilaterally and traversing L5 nerve roots. Moderate to advanced facet art hropathy. 4. Mild central canal stenosis L2-L3 and L3-L4. 5. Moderate bilateral L4-5 foraminal narrowing. 6. Eccentric disc bulging with small bilateral foraminal protrusions L3-4 with mild bilateral foraminal narrowing. 7. Moderate to advanced facet arthropathy L4-L5 and L5-S1.
== END 2020-10-22 13:27 | disposition home or self-care (01) ==
LOC: RADSHAW 13:29
PROVIDERS: PCP Nurse Practitioner Family; Visit Provider Specialist
DX: M25.559 Pain in unspecified hip (principal); M47.816 Spondylosis without myelopathy or radiculopathy, lumbar region; M47.817 Spondylosis without myelopathy or radiculopathy, lumbosacral region; M51.26 Other intervertebral disc displacement, lumbar region; M48.061 Spinal stenosis, lumbar region without neurogenic claudication
CPT/HCPCS: 72148

== ENCOUNTER → 2020-11-22 11:25 | Outpatient (BNVA) | payer MEDICARE, SELFPAY | PROVIDERS: PCP Nurse Practitioner Family; Visit Provider Orthopaedic Surgery | DX: Z01.812 Encounter for preprocedural laboratory examination (principal); Z20.822 Contact with and (suspected) exposure to COVID-19 | CPT/HCPCS: 87635 ==

== ENCOUNTER 2020-11-25 09:30 | Day surgery (SDC) | payer MEDICARE, SELFPAY ==
[2020-11-25 09:59] VITALS: BMI 25.0
[2020-11-25 10:18] LABS: Basophils % 0.2 %; Eosinophils # 0.2 10^3/uL (0.0-0.8); Eosinophils % 1.7 %; Hematocrit 34.3 % (37.0-47.0); Lymphocytes # 2.4 10^3/uL (0.8-4.8); Lymphocytes % 25.4 %; Mean Corpuscular HGB Conc 32.1 g/dL (30.0-36.0); Mean Corpuscular Volume 99.7 fL (81-99); Mean Platelet Volume 10.7 fL (7.4-10.4); Monocytes # 0.7 10^3/uL (0.2-0.9); Monocytes % 7.9 %; Neutrophils # 5.98 10^3/uL (1.8-7.7); Neutrophils % 64.5 %; Nucleated Red Blood Cells % 0 %; Platelet Count 214 10^3/cmm (130-400); Red Blood Count 3.44 10^6/uL (4.1-5.3); Red Cell Distribution Width 14.2 % (12.1-15.1); White Blood Count 9.3 10^3/uL (4.0-10.0)
--- NOTE | 2020-11-25 10:38 | P.ANESASSM_ITS ---
Pre-Anesthetic Assessment Pre-Anesthetic Assessment: Height/Weight: Height 1.52 m Weight 58.06 kg Preop Diagnosis: L4/5 Spondylolisthesis Proposed Procedure: Operation Date: 11/27/20 09:00 Proposed Procedures p Posterior Lumbar Interbody Fusion L4/5 M43.16 [id number](Not Applicable) - Cj Aguilar, DO Was Beta Rose taken within 24 hours: Yes Was Clonidine taken within 24 hours: N/A Social: Social History: No alcohol and No tobacco Exam: Pre-Anes Outpt Exam: alert, oriented x 3, clear to auscultation bilaterally and regular rate & rhythm Airway: Submandibular: WNL Cervical ROM: WNL MP: 2 Dentition: Caps and Full Pulmonary: Comments: pulmonary fibrosis CV/HEM: CV/HEM: Anemia, CAD (stents) and HTN GI: GI: GERD Anesthetic Plan: ASA status: 3 Anesthesia: General Risk of > 500 ml blood loss (7ml/kg in children): No PFSH Anesthesia PFSH: Medical History Anemia Benign essential hypertension with target blood pressure below 140/90 Coronary artery disease Diabetes Dyslipidemia (high LDL; low HDL) GERD (gastroesophageal reflux disease) Gout Gout, arthritis History of small bowel obstruction Leukocytosis NSTEMI (non-ST elevated myocardial infarction) Plantar fasciitis of right foot Surgical History H/O foot surgery H/O wrist surgery History of appendectomy History of knee replacement, total History of PTCA History of tonsillectomy and adenoidectomy Hx of cholecystectomy Hx of hysterectomy Family History Sister Chronic kidney disease (CKD) Diabetes Stroke Mother Diabetes Denies family history of Rheumatoid arthritis Lupus CAD (coronary artery disease) Clotting disorder Dementia Suicide Anesthesia complication Bleeding disorder Lung disease Cancer Hypertension Social History Smoking and tobacco status: former smoker Quit status (tobacco): has quit using tobacco Year quit tobacco: 1985 Second hand smoke exposure: No Alcohol intake: never Adopted: No Caregiver/support person: Yes Lives independently: Yes Household members: spouse and family Housing: House Marital status: Marital status details: month Highest education level completed: High School Graduate service: No Current occupational status: retired Pets and animals: No History of recent travel: No Leisure activites: music and games Sexually active: No Current gender identity: Female Karley/Holiness: Caodaism Special karley needs: No Agree to transfusion: No Financial difficulty paying for basics: Decline to Answer Data Anesthesia CBC & Chem 7: 11/25/20 10:11 11/25/20 10:11 Other Labs: Laboratory Results - last 48 hr 11/25/20 10:11 WBC 9.3 RBC 3.44 L Hgb 11.0 L Hct 34.3 L MCV 99.7 H MCH 32.0 MCHC 32.1 RDW 14.2 Plt Count 214 MPV 10.7 H Neut % (Auto) 64.5 Lymph % (Auto) 25.4 [place] % (Auto) 7.9 Eos % (Auto) 1.7 Baso % (Auto) 0.2 Neut # (Auto) 5.98 Lymph # (Auto) 2.4 [place] # (Auto) 0.7 Eos # (Auto) 0.2 Baso # (Auto) 0.0 Nucleated RBC % (auto) 0 Nucleated RBCs # 0.0 Cardiac Studies: No Data to Display
[2020-11-25 10:43] LABS: Alanine Aminotransferase 11 U/L (0-33); Alkaline Phosphatase 99 IU/L (35-105); Anion Gap 13.1 (5-19); Aspartate Amino Transferase 16 U/L (0-32); Blood Urea Nitrogen 20 mg/dL (8-23); Calcium 9.2 mg/dL (8.5-10.5); Carbon Dioxide 29 mmol/L (22-29); Chloride 103 mmol/L (98-107); Globulin 2.2 g/dL (1.3-4.6); Glucose 97 mg/dL (65-115); Osmolality Calculated 295 mOsm/kg (285-295); Potassium 4.1 mmol/L (3.5-5.1); Sodium 141 mmol/L (136-145); Total Bilirubin 0.3 mg/dL (0.15-1.2); Total Protein 6.2 g/dL (6.6-8.7)
== END 2020-11-25 10:30 | disposition home or self-care (01) ==
LOC: OR 12-02 09:01
PROVIDERS: PCP Nurse Practitioner Family; Visit Provider Orthopaedic Surgery
DX: Z01.818 Encounter for other preprocedural examination (principal)
CPT/HCPCS: 36415; 80048; 80053; 85025

== ENCOUNTER → 2020-12-26 11:26 | Outpatient (BNVA) | payer MEDICARE, SELFPAY | PROVIDERS: Absent Provider Internal Medicine Cardiovascular Disease; PCP Nurse Practitioner Family; Visit Provider Internal Medicine Cardiovascular Disease | DX: E78.5 Hyperlipidemia, unspecified (principal) | CPT/HCPCS: 80061 ==

== ENCOUNTER 2021-04-25 06:48 | Outpatient (CLI) | payer MEDICARE, SELFPAY ==
--- NOTE | 2021-04-25 07:06 | ECG_ITS ---
[facility] Test Date: 2021-04-25 Pat Name: Kenia Camacho Department: Room: Gender: Female Recoating Machine Operator: : [id number] Requested By: Kyara Garcia Order Number: [id number] Tali MD: Kyara Garcia M.D. Interpretive Statements NAME OF STUDY: LEXISCAN SESTAMIBI STRESS TEST INDICATION: Chest Pain, PROCEDURE: At the baseline, the EKG revealed normal sinus rhythm with a right bundle branch block. The baseline blood pressure was 192/87 mm Hg with a heart rate of 64 beats/min. Lexiscan was infused over a period of 20 seconds. A total of 0.4 milligrams of Lexiscan was infused. The stress phase was continued for a total of 5 minutes. Heart rate at the end of the stress phase was 70 with a blood pressure 187/85. The EKG at the peak infusion revealed no significant changes. Sestamibi was injected 20 seconds after the Lexiscan infusion. Blood pressure at the end of the recovery phase was 175/81 with a heart rate of 64 per minute. CONCLUSION: 1. No significant EKG changes with the LexiScan infusion 2. No LexiScan induced chest pain or cardiac arrhythmia 3. Normal blood pressure and heart rate response 4. Sestamibi/sestamibi perfusion scan pending; see separate report. Electronically Signed On 05-01-2021 0:31:54 CDT by Kyara Garcia M.D. [email or web address]
--- NOTE | 2021-04-25 07:07 | NMCV_ITS ---
NM arnold perf SPECT r/s* [id number] Kenia Camacho Age: 85 Gender: F : 1935 Exam Date: 04/25/2021 08:01 Ordering Phys: Kyara Garcia MD ([email or web address]) Technologist: [place] Gonsales Exam Location: [facility] Indications: SHORTNESS OF BREATH STRESS TEST [facility] IMAGE PROTOCOL Rest/Stress 1 Lexiscan Day Radiopharmaceutical Dose (mCi) Administration Site Administered by Rest: Tc-99m 10.7 IV [place] Almanza Sestamibi Stress:Tc-99m 32.4 IV [place] Gonsales Sestamibryant Rest: 25-Apr-2021 60 Discovery 630 Stress: 25-Apr-2021 30 Discovery 630 0.4mg Lexiscan. Images obtained in supine and prone position. SPECT RESULTS Technical Quality: Excellent Raw Data Analysis: Normal Image Corrections: No attenuation or motion correction applied Summed Stress Score: 7 Summed Rest Score: 2 Summed Difference Score: 5 PERFUSION FINDINGS Moderate area of slightly decreased tracer uptake was noted in the basal mid and apical inferior, mid inferolateral, apical lateral and LV apex. Significant reversibility was noted in these regions with the prone imaging. However on the supine imaging, the ischemia appears to be minimal. FUNCTIONAL RESULTS (calculated via Gated SPECT) Stress Image LV EF (%): 63 Stress EDV (mL):91 TID: 1.08 Stress ESV (mL):34 FUNCTIONAL FINDINGS: Segmental wall motion analysis revealing no gross wall motion abnormalities. IMPRESSIONS 1. Myocardial perfusion may revealing a moderate area of reversible defect in the inferolateral region, suggestive of ischemia predominantly in the distribution of the right coronary artery with some involvement of the left circumflex artery. 2. Normal LV ejection fraction of 63%. 3. LV wall motion analysis revealing no gross wall motion normalities. 4. Normal LV volume. In view of the inconsistency with the supine imaging, the reliability of this finding is somewhat questionable. Clinical correlation is recommended. No similar previous studies are available for comparison Dr Kyara Garcia MD FAC (Electronically Signed) Final Date: 25 April 2021 17:58 S
[2021-04-25 07:31] VITALS: BMI 26.4
[2021-04-25] MEDS: regadenoson 0.4 Mg/5 ml Syringe IVP (08:41)
[2021-04-25 08:49] VITALS: BP 175/81; PULSE 66
== END 2021-04-25 06:49 | disposition home or self-care (01) ==
LOC: RAD 06:49 → CDL 07:23
PROVIDERS: PCP Nurse Practitioner Family; Visit Provider Internal Medicine Cardiovascular Disease
DX: R06.02 Shortness of breath (principal)
CPT/HCPCS: 78452; 93017; A9500; J2785

== ENCOUNTER → 2021-05-15 09:19 | Outpatient (BNVA) | payer MEDICARE, SELFPAY | PROVIDERS: PCP Nurse Practitioner Family; Visit Provider Internal Medicine Cardiovascular Disease | DX: E78.5 Hyperlipidemia, unspecified (principal) | CPT/HCPCS: 80061 ==